=== PATIENT | female | born 1935 | race Caucasian/White ===

== ENCOUNTER → 2019-07-10 12:47 | Outpatient (CLI) | payer OTHER, SELFPAY ==
[2019-07-10 13:57] LABS: BUN Creatinine Ratio 27.3 (6-22); Blood Urea Nitrogen 27 mg/dL (7-17); Calcium 9.9 mg/dL (8.4-10.2); Carbon Dioxide 29 mmol/L (22-32); Chloride 102 mmol/L (98-107); Estimated Glomerular Filt Rate 53.7 mL/min (>60); Glucose 78 mg/dL (80-110); HEMOLYSIS < 15 (0-50); Potassium 5.2 mmol/L (3.4-5.1); Sodium 138 mmol/L (137-145)
== END ==
PROVIDERS: Referring Provider Physician Assistant Medical; Visit Provider Physician Assistant Medical
DX: I10 Essential (primary) hypertension (principal); I11.9 Hypertensive heart disease without heart failure; I27.20 Pulmonary hypertension, unspecified; G47.33 Obstructive sleep apnea (adult) (pediatric); Z99.89 Dependence on other enabling machines and devices; E78.2 Mixed hyperlipidemia
CPT/HCPCS: 36415; 80048

== ENCOUNTER → 2020-03-23 09:10 | Outpatient (CLI) | payer OTHER, SELFPAY ==
[2020-03-23 11:06] LABS: BUN Creatinine Ratio 34.9 (6-22); Blood Urea Nitrogen 30 mg/dL (7-17); Calcium 9.1 mg/dL (8.4-10.2); Carbon Dioxide 28 mmol/L (22-32); Chloride 105 mmol/L (98-107); Estimated Glomerular Filt Rate > 60.0 mL/min (>60); Glucose 98 mg/dL (80-110); HEMOLYSIS < 15 (0-50); Sodium 138 mmol/L (137-145)
== END ==
PROVIDERS: PCP Internal Medicine Cardiovascular Disease; Referring Provider Internal Medicine Cardiovascular Disease; Visit Provider Internal Medicine Cardiovascular Disease
DX: R60.0 Localized edema (principal); I27.20 Pulmonary hypertension, unspecified; I11.9 Hypertensive heart disease without heart failure; R42 Dizziness and giddiness; R93.1 Abnormal findings on diagnostic imaging of heart and coronary circulation; I10 Essential (primary) hypertension; R73.01 Impaired fasting glucose; E78.2 Mixed hyperlipidemia; G47.33 Obstructive sleep apnea (adult) (pediatric); Z99.89 Dependence on other enabling machines and devices
CPT/HCPCS: 36415; 80048

== ENCOUNTER → 2020-06-09 06:48 | Outpatient (CLI) | payer MEDICARE, SELFPAY ==
--- NOTE | 2020-06-09 | DI.MRI.S_ITS ---
PROCEDURE: MR HEAD/BRAIN WO CON INDICATIONS: Dizziness and giddiness TECHNIQUE: Non-contrast axial T1 spin echo, axial T2 fast spin echo, sagittal and axial FLAIR, coronal T2 fast spin echo, axial gradient echo, axial diffusion and ADC through the brain. COMPARISON: None. FINDINGS: Image quality: Excellent. CSF spaces: Ventricles appear symmetric in size and shape. Basal cisterns are patent. No extra-axial fluid collections. Brain: No intracranial bleeds or mass effects. There is cerebral volume loss for age. There are minimal periventricular and deep white matter chronic small vessel ischemic changes. Brainstem appears normal. Diffusion-weighted images show no acute ischemic insults. No chronic ischemic insults. Normal intravascular flow voids are present. 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 Skull and face: Calvarial bone marrow is normal in signal. Orbits are normal. Sinuses: Sinuses and mastoids are clear. IMPRESSION: 1. No acute intracranial process. 2. Moderate atrophy minimal chronic microvascular ischemic change. Dictated by: Azeb Stark M.D. on 06/09/2020 at 9:38 Approved by: Azeb Stark M.D. on 06/09/2020 at 9:39
== END ==
PROVIDERS: PCP Internal Medicine; Referring Provider Internal Medicine; Visit Provider Internal Medicine
DX: R42 Dizziness and giddiness (principal)
CPT/HCPCS: 70551

== ENCOUNTER → 2020-06-13 13:53 | Outpatient (CLI) | payer MEDICARE, SELFPAY ==
--- NOTE | 2020-06-13 | DI.MG.S_ITS ---
BILATERAL DIGITAL DIAGNOSTIC MAMMOGRAM 3D/2D: 06/13/2020 CLINICAL: Left breast pain. Comparison is made to exams dated: 01/20/2018 mammogram and 02/18/2019 mammogram - outside location. There are scattered fibroglandular elements in both breasts. The patient is status post surgical excision left breast at 1 o'clock. The left breast has post-operative findings. No significant masses, calcifications, or other findings are seen in either breast. Specifically, no finding to explain the patient's pain. IMPRESSION: NEGATIVE No new findings to explain patient's breast pain. No significant change to post surgical appearance of the upper outer left breast. A 1 year screening mammogram is recommended. Findings and recommendations were conveyed to the patient at time of exam. This exam was interpreted at Station ID: [id number]. NOTE: For mammograms, a report in lay terms will be sent to the patient. Approximately 15% of breast malignancies will not be visualized mammographically. In the management of a palpable breast mass, a negative mammogram must not discourage biopsy of a clinically suspicious lesion. Electronically Signed By: Darcy johnson/:06/13/2020 15:28:02 letter sent: Normal Exam ACR BI-RADS Category 1: Negative [id number]
== END ==
PROVIDERS: PCP Internal Medicine; Referring Provider Internal Medicine; Visit Provider Internal Medicine
DX: N63.20 Unspecified lump in the left breast, unspecified quadrant; N64.4 Mastodynia
CPT/HCPCS: 77066; G0279

== ENCOUNTER → 2020-06-17 08:45 | Outpatient (CLI) | payer MEDICARE, SELFPAY ==
[2020-06-17 10:13] LABS: Alanine Aminotransferase 25 IU/L (<35); Albumin 4.5 g/dL (3.5-5.0); Albumin Globulin Ratio 1.4 (1.0-2.8); Alkaline Phosphatase 74 U/L (38-126); Aspartate Aminotransferase 39 IU/L (14-36); Bilirubin Total 0.4 mg/dL (0.2-1.3); Blood Urea Nitrogen 26 mg/dL (7-17); Calcium 9.1 mg/dL (8.4-10.2); Carbon Dioxide 27 mmol/L (22-32); Chloride 99 mmol/L (98-107); Cholesterol 185 mg/dL (140-199); Estimated Glomerular Filt Rate 57.7 mL/min (>60); Globulin 3.3 g/dL (1.7-4.1); Glucose 99 mg/dL (80-110); HDL Cholesterol 86 mg/dL (40-60); HEMOLYSIS 19 (0-50); LDL Cholesterol Calculated 85 mg/dL (<100); Potassium 4.4 mmol/L (3.4-5.1); Sodium 135 mmol/L (137-145); Total Protein 7.8 g/dL (6.3-8.2); Triglycerides 70 mg/dL (35-150)
[2020-06-17 10:41] LABS: TSH w/ Reflex to FT4 1.35 uIU/mL (0.47-4.68)
== END ==
PROVIDERS: PCP Internal Medicine; Referring Provider Internal Medicine; Visit Provider Internal Medicine
DX: I10 Essential (primary) hypertension (principal); E78.5 Hyperlipidemia, unspecified
CPT/HCPCS: 36415; 80053; 80061; 84443

== ENCOUNTER → 2021-07-03 08:28 | Outpatient (CLI) | payer MEDICARE, SELFPAY ==
[2021-07-03 09:32] LABS: Add Manual Diff / Slide Review NO; Basophils Absolute Auto 0 /uL (0-100); Basophils Percent Auto 0.8 % (0-2); Eosinophils Absolute Auto 100 /uL (0-450); Eosinophils Percent Auto 3.1 % (2-4); Hemoglobin 12.2 g/dL (12.0-16.0); Lymphocytes Absolute Auto 800 /uL (1100-4500); Lymphocytes Percent Auto 20.9 % (25-40); Mean Corpuscular HGB Conc 33.9 % (30-36); Mean Corpuscular Hemoglobin 29.1 PG (26-34); Mean Corpuscular Volume 85.8 fL (80-100); Monocytes Absolute Auto 500 /uL (0-900); Monocytes Percent Auto 12.5 % (3-14); Neutrophils Absolute Auto 2500 /uL (1500-7000); Neutrophils Percent Auto 62.7 % (50-75); Platelet Count 169 X10^3/uL (150-400); Red Cell Distribution Width 15.8 % (11.6-14.8)
[2021-07-03 10:07] LABS: BUN Creatinine Ratio 25.9 (6-22); Blood Urea Nitrogen 29 mg/dL (7-17); Calcium 9.4 mg/dL (8.4-10.2); Carbon Dioxide 29 mmol/L (22-32); Chloride 104 mmol/L (98-107); Estimated Glomerular Filt Rate 46.3 mL/min (>60); Glucose 107 mg/dL (80-110); HEMOLYSIS < 15 (0-50); Potassium 4.9 mmol/L (3.4-5.1); Sodium 139 mmol/L (137-145)
[2021-07-03 10:16] LABS: NT-proBNP (BNP-Adult 18+) 206 pg/mL (<450)
[2021-07-03 10:36] LABS: Appearance Urine UA CLEAR; Bilirubin Urine UA NEGATIVE (NEGATIVE); Color Urine UA YELLOW; Glucose Urine UA NEGATIVE (Negative); Ketones Urine UA NEGATIVE (NEGATIVE); Leukocyte Esterase Urine UA NEGATIVE (NEGATIVE); Nitrite Urine UA NEGATIVE (Negative); Occult Blood Urine UA NEGATIVE (Negative); Protein Urine UA NEGATIVE (Negative); Urobilinogen Urine UA 0.2 E.U./dL (0.2)
[2021-07-03 10:37] LABS: Thyroid Stimulating Hormone 1.63 uIU/mL (0.47-4.68)
[2021-07-03 10:38] LABS: pH Urine UA 5.5 (4.5-8.0)
[2021-07-03 11:00] LABS: Bacteria Urine None Seen; RBC Urine None Seen (0-5/HPF); WBC Urine None Seen (0-5/HPF)
[2021-07-03 11:01] LABS: Culture Indicated Urine Cult Not Indicated
== END ==
PROVIDERS: PCP Internal Medicine; Referring Provider Nurse Practitioner Family; Visit Provider Nurse Practitioner Family
DX: G47.33 Obstructive sleep apnea (adult) (pediatric) (principal); E78.2 Mixed hyperlipidemia; R93.1 Abnormal findings on diagnostic imaging of heart and coronary circulation; I10 Essential (primary) hypertension; N17.9 Acute kidney failure, unspecified
CPT/HCPCS: 36415; 80048; 81001; 83880; 84443; 85025

== ENCOUNTER → 2021-07-19 09:58 | Outpatient (CLI) | payer MEDICARE, SELFPAY ==
--- NOTE | 2021-07-19 | DI.MG.S_ITS ---
BILATERAL DIGITAL SCREENING MAMMOGRAM 3D/2D WITH CAD: 07/19/2021 CLINICAL: Routine screening. Personal history of left breast cancer. Comparison is made to exams dated: 06/13/2020 mammogram - [facility], 02/18/2019 mammogram, and 01/20/2018 mammogram - outside location. There are scattered fibroglandular elements in both breasts. Current study was also evaluated with a Computer Aided Detection (CAD) system. No significant masses, calcifications, or other findings are seen in either breast. There has been no significant interval change. IMPRESSION: NEGATIVE There is no mammographic evidence of malignancy. A 1 year screening mammogram is recommended. This exam was interpreted at Station ID: [id number]. NOTE: For mammograms, a report in lay terms will be sent to the patient. Approximately 15% of breast malignancies will not be visualized mammographically. In the management of a palpable breast mass, a negative mammogram must not discourage biopsy of a clinically suspicious lesion. Electronically Signed By: Ronnie Velasquez M.D., jr/andrei:07/19/2021 13:58:57 letter sent: Normal Exam ACR BI-RADS Category 1: Negative 3341F
== END ==
PROVIDERS: PCP Internal Medicine; Referring Provider Internal Medicine; Visit Provider Internal Medicine
DX: Z12.31 Encounter for screening mammogram for malignant neoplasm of breast (principal); Z85.3 Personal history of malignant neoplasm of breast
CPT/HCPCS: 77063; 77067

== ENCOUNTER 2021-09-04 15:17 | Emergency (ER) | payer MEDICARE, SELFPAY ==
[2021-09-04 15:39] VITALS: BP 129/67; PULSE 66; RESP 17; TEMP 36.9; O2SAT 98; BMI 33.5
--- NOTE | 2021-09-04 19:15 | ED.NAVMDI ---
HPI - Nausea/Vomiting/Diarrhea General Chief complaint: Nausea/Vomiting/Diarrhea Stated complaint: DIAHRREA Time Seen by Provider: 09/04/21 19:15 Source: patient Mode of arrival: Wheelchair History of Present Illness HPI Narrative: 86-year-old female Nonsmoker with history of hypertension and CHF and prior C. jejuni infection presents with a friend multiple days of diarrhea and chills. She had been in her normal state of health and then Saturday started developing loose stools, cramping and chills, she has had no fever. She denies any recent antibiotics, travel or bad food though she did have some home he had fried chicken the night before symptoms started. She is had decreased appetite and is eating and drinking little as she becomes nauseated with consumption. She denies any chest pain or shortness of breath. She denies any dysuria, frequency or urgency. She had been seen and evaluated at the walk-in clinic on Saturday and though she was hoping to provide a stool sample she was told the lab was closed. She was given a prescription for 3 days for a Zithromax in given her history. She states that she has been having upwards of 6 loose stools per day, she denies any blood in her stool. She has not had a bowel movements that she has been here today. Related Data Home Medications Medication Instructions Recorded Confirmed amlodipine 5 mg tablet 5 mg PO DAILY 09/04/21 09/04/21 carvedilol 12.5 mg tablet 12.5 mg PO DAILY 09/04/21 09/04/21 carvedilol 6.25 mg tablet 6.25 mg PO DAILY 09/04/21 09/04/21 furosemide 20 mg tablet 20 mg PO DAILY 09/04/21 09/04/21 furosemide 40 mg tablet 40 mg PO DAILY 09/04/21 09/04/21 losartan 100 mg tablet 100 mg PO DAILY 09/04/21 09/04/21 pravastatin 20 mg tablet 20 mg PO DAILY 09/04/21 09/04/21 Allergies Allergy/AdvReac Type Severity Reaction Status Date / Time No Known Drug Allergies Allergy Verified 09/04/21 15:44 Review of Systems Review of Systems Narrative: GENERAL: See HPI HEENT: Denies sinus pain, ear pain, sore throat, difficulty swallowing, dizziness. RESPIRATORY: Denies dyspnea, cough, wheezing, hemoptysis, sputum. CARDIOVASCULAR: Denies chest pain, palpitations, orthopnea, edema, GASTROINTESTINAL: See HPI : Denies dysuria, frequency, incontinence, hematuria, urinary retention. MUSCULOSKELETAL: denies weakness, joint pain, or bony pain SKIN: Denies rash, skin lesions, or other NEUROLOGIC: Denies weakness, headache, numbness, change in speech, confusion, seizures, incoordination. PSYCHIATRIC: No concerning psychosocial issues. 12 point review of systems is negative except for those stated above Patient History Social History Smoking Status: Never smoker Smoking Status: Never smoker alcohol intake frequency: other Substance Use Type: does not use Exam Narrative Exam Narrative: GENERAL: [86 year old patient appears stated age. Well-developed patient, in mild distress. HEAD: Atraumatic. Normocephalic. EYES: Pupils equal round and reactive. Extraocular motions intact. No scleral icterus. No injection or drainage. ENT: Dry mucous membranes Nose without bleeding, purulent drainage. Throat without erythema, tonsillar hypertrophy or exudate. Airway patent. NECK: Trachea midline. Non tender CARDIOVASCULAR: Regular rate and rhythm without murmurs, gallops, or rubs. RESPIRATORY: Clear to auscultation. Breath sounds equal bilaterally. No wheezes, rales, or rhonchi. GASTROINTESTINAL: Abdomen soft, minimal generalized tenderness with increased bowel sounds nondistended. EXTREMITIES: No edema or joint tenderness. BACK: Nontender without deformity or crepitance. No flank tenderness. NEURO: AOx3. SKIN: No rash or erythema of visible areas Initial Vital Signs Initial Vital Signs: Vital Signs Temperature 98.4 F 09/04/21 15:39 Pulse Rate 66 09/04/21 15:39 Respiratory Rate 17 09/04/21 15:39 Blood Pressure 129/67 09/04/21 15:39 Pulse Oximetry 98 09/04/21 15:39 Course Orders Ordered: ED Orders 09/04/21 15:47 Comprehensive Metabolic Panel Stat Lipase Stat 09/04/21 19:03 Complete Blood Count AUTO DIFF Stat 09/04/21 21:02 COVID19 -Nasal RAPID/Pre-Proc Stat Discontinued Medications Sodium Chloride (Normal Saline 0.9%) 500 mls @ 1,000 mls/hr IV BOLUS ONE Stop: 09/04/21 19:57 Last Infusion: 09/04/21 20:18 Dose: 0 mls/hr Documented by: Admin: 09/04/21 19:44 Dose: 1,000 mls/hr Documented by: TEGAN Ondansetron HCl (Ondansetron 4 Mg/2 Ml Inj) 4 mg IV NOW ONE Stop: 09/04/21 19:33 Last Admin: 09/04/21 19:43 Dose: 4 mg Documented by: TEGAN Pantoprazole Sodium (Pantoprazole 40 Mg Vial) 40 mg IV NOW ONE Stop: 09/04/21 19:33 Last Admin: 09/04/21 19:44 Dose: 40 mg Documented by: TEGAN Vital Signs Vital signs: Vital Signs - 8 hr 09/04/21 22:43 Pulse Rate 66 Respiratory Rate 18 Blood Pressure 128/70 Pulse Oximetry 98 MDM - Nausea/Vomiting/Diarrhea Lab Data Result diagrams: 09/04/21 19:03 09/04/21 15:47 Labs: Lab Results 09/04/21 09/04/21 09/04/21 Range/Units 15:47 19:03 21:02 WBC 4.9 (4.5-11.0) X10^3/uL RBC 4.43 (4.0-5.2) X10^6/uL Hgb 12.7 (12.0-16.0) g/dL Hct 38.5 (36-46) % MCV 86.8 (80-100) fL MCH 28.6 (26-34) PG MCHC 33.0 (30-36) % RDW 15.1 H (11.6-14.8) % Plt Count 162 (150-400) X10^3/uL Neut % (Auto) 58.7 (50-75) % Lymph % (Auto) 19.6 L (25-40) % [place] % (Auto) 17.9 H (3-14) % Eos % (Auto) 3.5 (2-4) % Baso % (Auto) 0.3 (0-2) % Neut # (Auto) 2900 (6101-1469) /uL Lymph # (Auto) 1000 L (7353-9403) /uL [place] # (Auto) 900 (0-900) /uL Eos # (Auto) 200 (0-450) /uL Baso # (Auto) 0 (0-100) /uL Sodium 136 L (137-145) mmol/L Potassium 4.5 (3.4-5.1) mmol/L Chloride 104 (98-107) mmol/L Carbon Dioxide 22 (22-32) mmol/L BUN 32 H (7-17) mg/dL Creatinine 1.11 H (0.52-1.04) mg/dL Estimated GFR 49 L (>60) mL/min BUN/Creatinine Ratio 28.8 H (6-22) Glucose 103 (80-110) mg/dL Calcium 9.1 (8.4-10.2) mg/dL Total Bilirubin 0.4 (0.2-1.3) mg/dL AST 34 (14-36) IU/L ALT 12 (<35) IU/L Alkaline Phosphatase 67 (38-126) U/L Total Protein 8.5 H (6.3-8.2) g/dL Albumin 4.6 (3.5-5.0) g/dL Globulin 3.9 (1.7-4.1) g/dL Albumin/Globulin Ratio 1.2 (1.0-2.8) Lipase 65 (23-300) U/L SARS-CoV-2 (PCR) Negative (Negative) Urine Dip Bedside Urine Glucose Negative Bedside Urine Bilirubin - Negative Bedside Urine Ketone - Negative Urine Specific [place] 1.015 Bedside Urine Occult Blood - Negative Bedside Urine pH 5.5 Bedside Urine Protein - Negative Bedside Urine Urobilinogen - Negative Bedside Urine Nitrite - Negative Bedside Urine Leukocytes - Negative Esterase MDM Narrative Medical decision making narrative: Patient with reassuring history and physical exam. She feels significant improvement after fluids and has been here multiple hours and still unable to produce at loose stool. She has very minimal if any pain and is tolerating orals without difficulty. She has no significant risk factors for infectious diarrhea and is already being treated with a Zithromax. She has been given extensive return precautions, I called lab and put in an order for a GI panel, patient was supplied with a sterile cup and instructions for how to obtain and return the sample. Discharge Plan Departure Patient Disposition: Home Clinical Impression: Diarrhea Qualifiers: Diarrhea type: unspecified type Qualified Code(s): R19.7 - Diarrhea, unspecified Instructions: Diarrhea Activity Restrictions/Additional Instructions: *You have been diagnosed with [ diarrhea] *What to do: *Please continue to take your regular medications as directed. [ ] New medication prescriptions sent to your pharmacy: [ ] [ ] New medication written as a paper prescription [x ] No new medications given *Please follow up with your primary care provider in 2-3 days, call for an appointment. Let them know you were seen in the Emergency Department and that we ask that you be seen in follow up. We will electronically transmit a record of today's note if your PCP is in our system *Please consider a clear liquid diet for the next 24-48 hours *Return to Emergency Department if you should have any new, worsening or concerning symptoms, such as [fever greater than 101 F, shaking chills, worsening pain, persistent vomiting or other bothersome symptoms] Prescriptions: No Action furosemide 40 mg tablet 40 mg PO DAILY 0RF carvedilol 6.25 mg tablet 6.25 mg PO DAILY 0RF carvedilol 12.5 mg tablet 12.5 mg PO DAILY 0RF amlodipine 5 mg tablet 5 mg PO DAILY 0RF pravastatin 20 mg tablet 20 mg PO DAILY 0RF furosemide 20 mg tablet 20 mg PO DAILY 0RF losartan 100 mg tablet 100 mg PO DAILY 0RF Referrals: Merari Marks MD [Primary Care Provider] - Visit Report Forms: Patient Portal/API
[2021-09-04 19:33] LABS: Add Manual Diff / Slide Review NO; Basophils Absolute Auto 0 /uL (0-100); Basophils Percent Auto 0.3 % (0-2); Eosinophils Absolute Auto 200 /uL (0-450); Eosinophils Percent Auto 3.5 % (2-4); Hematocrit 38.5 % (36-46); Hemoglobin 12.7 g/dL (12.0-16.0); Lymphocytes Absolute Auto 1000 /uL (1100-4500); Lymphocytes Percent Auto 19.6 % (25-40); Mean Corpuscular Hemoglobin 28.6 PG (26-34); Mean Corpuscular Volume 86.8 fL (80-100); Monocytes Absolute Auto 900 /uL (0-900); Monocytes Percent Auto 17.9 % (3-14); Neutrophils Absolute Auto 2900 /uL (1500-7000); Neutrophils Percent Auto 58.7 % (50-75); Platelet Count 162 X10^3/uL (150-400); Red Blood Cell Count 4.43 X10^6/uL (4.0-5.2); Red Cell Distribution Width 15.1 % (11.6-14.8); White Blood Cell Count 4.9 X10^3/uL (4.5-11.0)
[2021-09-04] MEDS: ONDANSETRON 4 MG/2 ML INJ IV (19:43)
[2021-09-04] MEDS: SODIUM CHLORIDE 0.9% 500 ML 1000 ML IV (19:44)
[2021-09-04] MEDS: PANTOPRAZOLE 40 MG VIAL IV (19:44)
[2021-09-04 19:58] LABS: Alanine Aminotransferase 12 IU/L (<35); Albumin 4.6 g/dL (3.5-5.0); Albumin Globulin Ratio 1.2 (1.0-2.8); Alkaline Phosphatase 67 U/L (38-126); Aspartate Aminotransferase 34 IU/L (14-36); BUN Creatinine Ratio 28.8 (6-22); Bilirubin Total 0.4 mg/dL (0.2-1.3); Blood Urea Nitrogen 32 mg/dL (7-17); Calcium 9.1 mg/dL (8.4-10.2); Carbon Dioxide 22 mmol/L (22-32); Chloride 104 mmol/L (98-107); Estimated Glomerular Filt Rate 49 mL/min (>60); Globulin 3.9 g/dL (1.7-4.1); Glucose 103 mg/dL (80-110); HEMOLYSIS 41 (0-50); Lipase 65 U/L (23-300); Potassium 4.5 mmol/L (3.4-5.1); Sodium 136 mmol/L (137-145); Total Protein 8.5 g/dL (6.3-8.2)
[2021-09-04 21:44] LABS: COVID19 -Nasal RAPID Negative (Negative)
[2021-09-04 22:43] VITALS: BP 128/70; PULSE 66; RESP 18; O2SAT 98
[2021-09-05 14:31] LABS: Adenovirus F 40/41 Not Detected (Not Detect); Astrovirus Not Detected (Not Detect); Clostridium difficile toxin AB Not Detected (Not Detect); Cryptosporidium Not Detected (Not Detect); Cyclospora cayetanensis Not Detected (Not Detect); Entamoeba histolytica Not Detected (Not Detect); Enteroaggregative E.coli Not Detected (Not Detect); Enteropathogenic E.coli Not Detected (Not Detect); Enterotoxigenic E.coli It/st Not Detected (Not Detect); Giardia lamblia Not Detected (Not Detect); Norovirus GI/GII Not Detected (Not Detect); Plesiomonsa shigelloides Not Detected (Not Detect); Rotavirus A Not Detected (Not Detect); Salmonella Not Detected (Not Detect); Sapovirus Not Detected (Not Detect); Shiga-like toxin-prod E.coli Not Detected (Not Detect); Shigella/Enteroinvasive E.coli Not Detected (Not Detect); Vibrio Not Detected (Not Detect); Vibrio cholerae Not Detected (Not Detect); Yersinia enterocolitica Not Detected (Not Detect)
[2021-09-05 14:38] LABS: Campylobacter Detected (Not Detect)
== END 2021-09-04 22:44 | disposition home or self-care (01) ==
PROVIDERS: Emergency Medicine; Emergency Provider Emergency Medicine; PCP Internal Medicine
DX: R19.7 Diarrhea, unspecified (principal); Z20.822 Contact with and (suspected) exposure to COVID-19
CPT/HCPCS: 36415; 80053; 81003; 83690; 85025; 87507; 87635; 96361; 96374; 96375; 99284; C9803; C9113; J2405

== ENCOUNTER → 2021-11-24 11:47 | Outpatient (CLI) | payer MEDICARE, SELFPAY | PROVIDERS: PCP Internal Medicine; Referring Provider Internal Medicine; Visit Provider Internal Medicine | DX: Z78.0 Asymptomatic menopausal state (principal); Z13.820 Encounter for screening for osteoporosis; Z90.710 Acquired absence of both cervix and uterus | CPT/HCPCS: 77080 ==

== ENCOUNTER → 2021-12-18 13:41 | Outpatient (CLI) | payer MEDICARE, SELFPAY ==
--- NOTE | 2021-12-18 13:42 | DI.ECHO.S_ITS ---
[facility]---------+ [facility] +---------+ : : [address] : [place] : : : : [id number] : : : : Phone: [phone] Echocardiogram Report + + :Name: KERVIN JOHNSON Study Date: 12/18/2021 Height: 64 in : :[facility] ReadingLocation: Weight: 220 lb : : Gender: Female BSA: 2.0 m2 : :: 1935 Age: 86 yrs BP: 150/77 mmHg: :Reason For Study: CHRONIC SYSTOLIC HEART FAILURE : :Ordering Physician: FABRIZIO, : :BUSHRA Performed By: Virginia Mckeon : :Referring: BUSHRA DINH : + + Interpretation Summary The ejection fraction is estimated to be 60-65%. There is mild mitral regurgitation. There is trace aortic regurgitation. There is mild to moderate tricuspid regurgitation. The right ventricular systolic pressure is estimated to be at least 49 mmHg based on an estimated right atrial pressure of 3 mm Hg. Procedure: A two-dimensional transthoracic echocardiogram with color flow and Doppler was performed. The study quality was technically adequate. There is no prior echocardiogram noted for this patient. The patient was in sinus rhythm with heart rates between 54-60 bpm during the exam. Left Ventricle: The left ventricle is normal in size and wall thickness. The ejection fraction is estimated to be 60-65%. Right Ventricle: The right ventricle is normal in size and function. Atria: The left atrium is mildly dilated. Right atrial size is normal. There is no Doppler evidence for an interatrial shunt. Mitral Valve: The mitral valve is normal in structure and function. There is mild mitral regurgitation. Aortic Valve: The aortic valve is trileaflet. The aortic valve opens well. There is no aortic valve stenosis. There is trace aortic regurgitation. Tricuspid Valve: The tricuspid valve leaflets are thin and pliable. There is mild to moderate tricuspid regurgitation. The right ventricular systolic pressure is estimated to be at least 49 mmHg based on an estimated right atrial pressure of 3 mm Hg. Pulmonic Valve: The pulmonic valve is not well seen, but is grossly normal. There is no pulmonic valvular regurgitation. Great Vessels: The aortic root is normal size. The dimensions of the ascending aorta are normal. The IVC is of normal diameter and collapses greater than 50% with a sniff. This suggests a low right atrial pressure of 3 mm Hg. Pericardium/ Pleura There is no pericardial effusion. There is no pleural effusion. MMode/2D Measurements & Calculations LVIDd: 5.1 cm LVOT diam: 2.0 cm LVIDs: 3.3 cm Ao root diam: 3.6 cm FS: 35.0 % asc Aorta Diam: 3.3 cm EPSS: 0.73 cm Ao Arch Diam (Prox Trans): 2.4 cm IVSd: 0.97 cm LVPWd: 1.0 cm LV barroso. diameter/BSA (cm/m^2): 2.5 LV sys. diameter/BSA (cm/m^2): 1.6 LA A2 area: 23.1 cm2 RA long axis: 5.7 cm LA A4 area: 21.8 cm2 RA area: 17.2 cm2 LA length (vol): 5.3 cm RA vol: 44.2 ml LA vol: 80.3 ml RA : 21.7 ml/m2 LA vol index: 39.4 ml/m2 IVC diam: 1.8 cm RVD1 (basal): 4.0 cm RVD2 (mid): 3.2 cm TAPSE: 2.5 cm Doppler Measurements & Calculations Ao V2 max: 174.8 cm/sec LVOT Max Simone: 112.4 cm/sec Ao V2 mean: 116.6 cm/sec LV V1 max P.1 mmHg Ao max P.2 mmHg LV V1 VTI: 28.7 cm Ao mean P.2 mmHg VADIM(I,D): 2.1 cm2 Ao V2 VTI: 42.6 cm VADIM(V,D): 2.0 cm2 sev ratio: 0.67 VADIM indexed to BSA (cm^2/m^2): 1.0 MV E max simone: 102.8 cm/sec TR max simone: 340.6 cm/sec MV A max simone: 81.7 cm/sec TR max P.4 mmHg MV E/A: 1.3 PA V2 max: 112.6 cm/sec Med Peak E' Simone: 6.2 cm/sec PA V2 mean: 72.1 cm/sec E/E' med: 16.6 PA mean P.4 mmHg Lat Peak E' Simone: 10.4 cm/sec PA pr(Accel): 17.3 mmHg E/E' lat: 9.9 E/e' average: 13.3 MV dec time: 0.20 sec SV(LVOT): 89.2 ml Reading Physician:04:56 PM
== END ==
PROVIDERS: PCP Internal Medicine; Referring Provider Internal Medicine; Visit Provider Internal Medicine
DX: I50.22 Chronic systolic (congestive) heart failure (principal); I34.0 Nonrheumatic mitral (valve) insufficiency; I35.1 Nonrheumatic aortic (valve) insufficiency; I07.1 Rheumatic tricuspid insufficiency
CPT/HCPCS: 93306

== ENCOUNTER 2022-11-08 14:54 | Emergency (ER) | payer MEDICARE, SELFPAY ==
[2022-11-08] VITALS (24 sets, daily range): BP systolic 131–208; BP diastolic 60–90; PULSE 54–63; RESP 20–37; TEMP 36.3; O2SAT 92–99; BMI 39.8
--- NOTE | 2022-11-08 15:04 | DI.RAD.S_ITS ---
PROCEDURE: XR CHEST 1V INDICATIONS: chest pain TECHNIQUE: One view of the chest was acquired. COMPARISON: None. FINDINGS: Surgical changes and devices: None. Lungs and pleura: There is a small focal area of density in the right lower lung field. No pleural effusions or pneumothorax. Mediastinum: Mediastinal contours appear normal. Heart size is normal. Bones and chest wall: No suspicious bony lesions. Overlying soft tissues appear unremarkable. IMPRESSION: Small focal area of density in the right lower lung field consistent with atelectasis or a focal infiltrate Dictated by: Wilian Avila M.D. on 11/08/2022 at 15:49 Approved by: Wilian Avila M.D. on 11/08/2022 at 15:52
[2022-11-08 16:22] LABS: Add Manual Diff / Slide Review NO; Basophils Absolute Auto 0 /uL (0-100); Basophils Percent Auto 0.6 % (0-2); Eosinophils Absolute Auto 100 /uL (0-450); Eosinophils Percent Auto 2.6 % (2-4); Hematocrit 37.6 % (36-46); Hemoglobin 12.5 g/dL (12.0-16.0); Lymphocytes Absolute Auto 600 /uL (1100-4500); Lymphocytes Percent Auto 12.8 % (25-40); Mean Corpuscular HGB Conc 33.3 % (30-36); Monocytes Absolute Auto 600 /uL (0-900); Monocytes Percent Auto 13.2 % (3-14); Neutrophils Absolute Auto 3100 /uL (1500-7000); Neutrophils Percent Auto 70.8 % (50-75); Platelet Count 149 X10^3/uL (150-400); Red Blood Cell Count 4.32 X10^6/uL (4.0-5.2); Red Cell Distribution Width 15.4 % (11.6-14.8); White Blood Cell Count 4.4 X10^3/uL (4.5-11.0)
[2022-11-08 16:23] LABS: PTT Partial Thromboplastin Tim 26 SECONDS (26-36)
[2022-11-08 16:25] LABS: Alanine Aminotransferase 18 IU/L (<35); Albumin 4.5 g/dL (3.5-5.0); Albumin Globulin Ratio 1.3 (1.0-2.8); Alkaline Phosphatase 79 U/L (38-126); Aspartate Aminotransferase 29 IU/L (14-36); BUN Creatinine Ratio 31.9 (6-22); Bilirubin Total 0.3 mg/dL (0.2-1.3); Blood Urea Nitrogen 37 mg/dL (7-17); Calcium 9.7 mg/dL (8.4-10.2); Carbon Dioxide 30 mmol/L (22-32); Chloride 100 mmol/L (98-107); Creatine Kinase 86 U/L (30-135); Estimated Glomerular Filt Rate 46 mL/min (>60); Globulin 3.6 g/dL (1.7-4.1); Glucose 124 mg/dL (80-110); HEMOLYSIS < 15 (0-50); Lipase 181 U/L (23-300); Potassium 4.2 mmol/L (3.4-5.1); Sodium 138 mmol/L (137-145); Total Protein 8.1 g/dL (6.3-8.2)
[2022-11-08 16:36] LABS: Troponin I < 0.012 ng/mL (0.01-0.034)
[2022-11-08 19:13] LABS: Troponin I < 0.012 ng/mL (0.01-0.034)
--- NOTE | 2022-11-08 19:30 | ED_ITS ---
HPI - Arrhythmia/Palpitations General Chief Complaint: Arrhythmia/Palpitations Stated Complaint: Chest pain Time Seen by Provider: 11/08/22 19:14 Source: patient Mode of arrival: Ambulatory History of Present Illness HPI narrative: Patient is a 87-year-old female history of hypertension, congestive heart failure presenting today with palpitations. She says she woke up around 4:00 a.m. and felt her heart pounding. It is off and on throughout the days. She denies any actual chest pain or shortness of breath. She has no cough no nausea no abdominal pain. Since being in the ED she is overall feeling significantly better. She called her asbestos shingle roofer in [place] who told her that she needs an EKG her PCP who is here was unable to see her. Her vitals have been stable in the ED and she is currently in a normal sinus rhythm. Related Data Home Medications Medication Instructions Recorded Confirmed amlodipine 5 mg tablet 5 mg PO DAILY 09/04/21 09/04/21 carvedilol 12.5 mg tablet 12.5 mg PO DAILY 09/04/21 09/04/21 carvedilol 6.25 mg tablet 6.25 mg PO DAILY 09/04/21 09/04/21 furosemide 20 mg tablet 20 mg PO DAILY 09/04/21 09/04/21 furosemide 40 mg tablet 40 mg PO DAILY 09/04/21 09/04/21 losartan 100 mg tablet 100 mg PO DAILY 09/04/21 09/04/21 pravastatin 20 mg tablet 20 mg PO DAILY 09/04/21 09/04/21 Allergies Allergy/AdvReac Type Severity Reaction Status Date / Time No Known Drug Allergies Allergy Verified 11/08/22 15:03 Review of Systems Review of Systems ROS Unobtainable: All systems reviewed & are unremarkable except as noted in HPI and below Patient History Social History Smoking Status: Never smoker Smoking Status: Never smoker alcohol intake frequency: 3 or more drinks per day Alcohol type: wine Substance Use Type: does not use Exam Initial Vital Signs Initial Vital Signs: Vital Signs Temperature 97.4 F L 11/08/22 14:58 Pulse Rate 63 11/08/22 14:58 Respiratory Rate 20 11/08/22 14:58 Blood Pressure 208/81 H 11/08/22 14:58 Pulse Oximetry 99 11/08/22 14:58 Oxygen Delivery Method Room Air 11/08/22 14:58 GENERAL: Alert pleasant well-appearing 87-year-old female and in no acute distress. HEENT: Head atraumatic,EOMI, pupils reactive, face symmetric, moist mucous membranes CARDIOVASCULAR: Regular rate and rhythm without murmurs, rubs or gallops. RESPIRATORY: Breath sounds equal bilaterally, no wheezes rales or rhonchi. ABDOMEN: Soft, nontender. Normoactive bowel sounds all 4 quadrants. No guarding or rebound. EXTREMITIES: Normal range of motion, no clubbing or edema. Neurovascularly intact NEUROLOGICAL: Alert and oriented x4.Normal gait and speech. SKIN: Warm, dry, no laceration, no petechiae, no rashes or lesions. Course Orders Ordered: Discontinued Medications Aspirin (Aspirin 81 Mg Chew Tab) 324 mg PO NOW ONE Stop: 11/08/22 15:04 Last Admin: 11/08/22 17:53 Dose: Not Given Documented By: TIMMY Vital Signs Vital signs: Vital Signs - 8 hr 11/08/22 19:50 11/08/22 19:50 11/08/22 20:00 Pulse Rate 57 L 56 L Respiratory Rate 25 H 37 H Blood Pressure 164/71 H Pulse Oximetry 99 99 Oxygen Delivery Method 11/08/22 20:05 Pulse Rate 60 Respiratory Rate 22 Blood Pressure Pulse Oximetry 98 Oxygen Delivery Method Room Air MDM - Arrhythmia/Palpitations Lab Data 11/08/22 16:00 11/08/22 16:00 Labs: Lab Results 11/08/22 11/08/22 11/08/22 Range/Units 16:00 16:00 16:00 WBC 4.4 L (4.5-11.0) X10^3/uL RBC 4.32 (4.0-5.2) X10^6/uL Hgb 12.5 (12.0-16.0) g/dL Hct 37.6 (36-46) % MCV 87.0 (80-100) fL MCH 29.0 (26-34) PG MCHC 33.3 (30-36) % RDW 15.4 H (11.6-14.8) % Plt Count 149 L (150-400) X10^3/uL Neut % (Auto) 70.8 (50-75) % Lymph % (Auto) 12.8 L (25-40) % [place] % (Auto) 13.2 (3-14) % Eos % (Auto) 2.6 (2-4) % Baso % (Auto) 0.6 (0-2) % Neut # (Auto) 3100 (3223-0132) /uL Lymph # (Auto) 600 L (0938-1764) /uL [place] # (Auto) 600 (0-900) /uL Eos # (Auto) 100 (0-450) /uL Baso # (Auto) 0 (0-100) /uL PT 11.0 (10.1-12.7) SECONDS INR 1.0 (0.9-1.3) APTT 26 (26-36) SECONDS Sodium 138 (137-145) mmol/L Potassium 4.2 (3.4-5.1) mmol/L Chloride 100 (98-107) mmol/L Carbon Dioxide 30 (22-32) mmol/L BUN 37 H (7-17) mg/dL Creatinine 1.16 H (0.52-1.04) mg/dL Estimated GFR 46 L (>60) mL/min BUN/Creatinine Ratio 31.9 H (6-22) Glucose 124 H (80-110) mg/dL Calcium 9.7 (8.4-10.2) mg/dL Magnesium 2.0 (1.6-2.3) mg/dL Total Bilirubin 0.3 (0.2-1.3) mg/dL AST 29 (14-36) IU/L ALT 18 (<35) IU/L Alkaline Phosphatase 79 (38-126) U/L Total Creatine Kinase 86 (30-135) U/L Troponin I < 0.012 (0.01-0.034) ng/mL Total Protein 8.1 (6.3-8.2) g/dL Albumin 4.5 (3.5-5.0) g/dL Globulin 3.6 (1.7-4.1) g/dL Albumin/Globulin Ratio 1.3 (1.0-2.8) Lipase 181 (23-300) U/L 11/08/22 Range/Units 18:40 WBC (4.5-11.0) X10^3/uL RBC (4.0-5.2) X10^6/uL Hgb (12.0-16.0) g/dL Hct (36-46) % MCV (80-100) fL MCH (26-34) PG MCHC (30-36) % RDW (11.6-14.8) % Plt Count (150-400) X10^3/uL Neut % (Auto) (50-75) % Lymph % (Auto) (25-40) % [place] % (Auto) (3-14) % Eos % (Auto) (2-4) % Baso % (Auto) (0-2) % Neut # (Auto) (5478-0958) /uL Lymph # (Auto) (1340-5611) /uL [place] # (Auto) (0-900) /uL Eos # (Auto) (0-450) /uL Baso # (Auto) (0-100) /uL PT (10.1-12.7) SECONDS INR (0.9-1.3) APTT (26-36) SECONDS Sodium (137-145) mmol/L Potassium (3.4-5.1) mmol/L Chloride (98-107) mmol/L Carbon Dioxide (22-32) mmol/L BUN (7-17) mg/dL Creatinine (0.52-1.04) mg/dL Estimated GFR (>60) mL/min BUN/Creatinine Ratio (6-22) Glucose (80-110) mg/dL Calcium (8.4-10.2) mg/dL Magnesium (1.6-2.3) mg/dL Total Bilirubin (0.2-1.3) mg/dL AST (14-36) IU/L ALT (<35) IU/L Alkaline Phosphatase (38-126) U/L Total Creatine Kinase (30-135) U/L Troponin I < 0.012 (0.01-0.034) ng/mL Total Protein (6.3-8.2) g/dL Albumin (3.5-5.0) g/dL Globulin (1.7-4.1) g/dL Albumin/Globulin Ratio (1.0-2.8) Lipase (23-300) U/L ECG Data Interpretation: Sinus rhythm rate 59 OK interval 244 QRS 76 QTC 399 Q-wave noted in lead 3 and anterior septal leads without ST changes MDM Narrative Medical decision making narrative: Patient is 87-year-old female history of hypertension congestive heart failure presenting today with palpitations. She is been on the monitor without any evidence of frequent PVCs or PACs. She is in a sinus rhythm without EKG changes not having any chest pain. Blood work is overall reassuring she is 2- troponins. Chest x-ray does not show any abnormality. Who does have a primary care provider here in town who can set her Holter monitor. At this time she overall feels well see no need for any further workup. Discharge Plan Departure Patient Disposition: Home Clinical Impression: Palpitations Instructions: Arrhythmias Activity Restrictions/Additional Instructions: *You have been diagnosed with palpitations *What to do: At this time I do recommend that you could Holter monitor you can talk with Dr. Marks about this. If you are feeling more palpitations please come to the ED to be evaluated *Continue to take medications as directed *Follow up with your primary care provider in 2-3 days or call [phone] *Return to ER if you should have increasing chest pain shortness of breath or palpitations or any new, worsening or concerning symptoms Prescriptions: No Action furosemide 40 mg tablet 40 mg PO DAILY carvedilol 6.25 mg tablet 6.25 mg PO DAILY carvedilol 12.5 mg tablet 12.5 mg PO DAILY amlodipine 5 mg tablet 5 mg PO DAILY pravastatin 20 mg tablet 20 mg PO DAILY furosemide 20 mg tablet 20 mg PO DAILY losartan 100 mg tablet 100 mg PO DAILY Referrals: Merari Marks MD [Primary Care Provider] - Stand Alone Forms: Patient Portal/API
== END 2022-11-08 20:10 | disposition home or self-care (01) ==
PROVIDERS: Emergency Medicine; Emergency Provider Emergency Medicine; PCP Internal Medicine
DX: R00.2 Palpitations (principal)
CPT/HCPCS: 36415; 71045; 80053; 82550; 83690; 83735; 84484; 85025; 85610; 85730; 93005; 93010; 99283; 99284

== ENCOUNTER → 2023-10-11 13:54 | Outpatient (CLI) | payer MEDICARE, SELFPAY ==
--- NOTE | 2023-10-11 13:56 | DI.MG.S_ITS ---
BILATERAL DIGITAL SCREENING MAMMOGRAM 3D/2D WITH CAD: 10/11/2023 CLINICAL: Routine screening. Personal history of left breast cancer. Comparison is made to exams dated: 07/19/2021 mammogram, 06/13/2020 mammogram - [facility], and 02/18/2019 mammogram - outside location. There are scattered areas of fibroglandular density in both breasts (category b / 25%-50% glandular tissue). Current study was also evaluated with a Computer Aided Detection (CAD) system. There are benign post operative findings in the left breast. No significant masses, calcifications, or other findings are seen in either breast. There has been no significant interval change. IMPRESSION: BENIGN There is no mammographic evidence of malignancy. A 1 year screening mammogram is recommended. This exam was interpreted at Station ID: [id number]. NOTE: For mammograms, a report in lay terms will be sent to the patient. Approximately 15% of breast malignancies will not be visualized mammographically. In the management of a palpable breast mass, a negative mammogram must not discourage biopsy of a clinically suspicious lesion. Electronically Signed By: Rc calvo/andrei:10/11/2023 15:21:35 letter sent: Normal Exam ACR BI-RADS Category 2: Benign Finding(s) 3342F
== END ==
LOC: MAMMO 13:55
PROVIDERS: PCP Internal Medicine; Referring Provider Internal Medicine; Visit Provider Internal Medicine
DX: Z12.31 Encounter for screening mammogram for malignant neoplasm of breast (principal); Z85.3 Personal history of malignant neoplasm of breast; R92.323 Mammographic fibroglandular density, bilateral breasts
CPT/HCPCS: 77063; 77067

== ENCOUNTER → 2024-06-15 13:46 | Outpatient (CLI) | payer MEDICARE, SELFPAY ==
--- NOTE | 2024-06-15 13:48 | DI.US.S_ITS ---
PROCEDURE: US THYROID INDICATIONS: PRIMARY HTN/THYROID ANTIBODIES NEG/TSH SUPPRESED TECHNIQUE: Real-time scanning was performed of the thyroid gland, with image documentation. COMPARISON: None. FINDINGS: Thyroid: Right lobe measures 4.6 x 1.3 x 1.9 cm. Left lobe measures 5.6 x 1.9 x 1.5 cm. Isthmus is 0.5 cm thick. Echotexture is homogeneous. Nodule number: 1 Location: Left superior Size: 1.6 x 0.9 x 1.1 cm. Composition: Solid Echogenicity: Isoechoic Shape: wider than tall. Margins: Smooth Echogenic foci: None Total points: 3 ACR TI-RADS category: TIRADS 3 (mildly suspicious) Nodule number: 2 Location: Right inferior Size: 1.0 x 0.9 x 0.9 cm. Composition: Solid Echogenicity: A Shape: wider than tall. Margins: Smooth Echogenic foci: None Total points: 3 ACR TI-RADS category: TIRADS 3 (mildly suspicious) IMPRESSION: Thyroid gland with a singleTIRADS 3 (mildly suspicious) nodule identified in each thyroid lobe. Per published consensus criteria recommend follow-up thyroid ultrasound in year. ACR TI-RADS definitions and recommendations: TI-RADS 1 (benign): 0 points. FNA not needed. TI-RADS 2 (not suspicious): 2 points. FNA not needed. TI-RADS 3: 3 points. * FNA if 2.5 cm or larger, follow up if 1.5 cm or larger (at 1, 3, and 5 years). TI-RADS 4: 4-6 points. * FNA if 1.5 cm or larger, follow up if 1 cm or larger (at 1, 2, 3, and 5 years). TI-RADS 5: 7 points or more. * FNA if 1 cm or larger, follow up if 0.5 cm or larger (every year for 5 years). Dictated by: Javier Wynn M.D. on 06/15/2024 at 21:03 Approved by: Javier Wynn M.D. on 06/15/2024 at 21:09
== END ==
PROVIDERS: PCP Internal Medicine; Referring Provider Family Medicine; Visit Provider Family Medicine
DX: E04.1 Nontoxic single thyroid nodule (principal); D50.9 Iron deficiency anemia, unspecified
CPT/HCPCS: 76536

== ENCOUNTER → 2024-06-25 09:41 | Outpatient (CLI) | payer MEDICARE, SELFPAY ==
--- NOTE | 2024-06-25 09:43 | DI.NM.S_ITS ---
PROCEDURE: NM UPTAKE AND SCAN RADIOPHARMACEUTICAL: 0.36 mCi I-123 sodium iodide by mouth. INDICATIONS: Thyroid nodule/suppressed TSH w/increased T3/T4 TECHNIQUE: I-123 sodium iodide was administered orally. Anterior neck images were obtained, and iodine uptake by the thyroid gland calculated using [employer] software. COMPARISON: [facility], , THYROID, 06/15/2024, 14:11. FINDINGS: Morphology: The thyroid gland has normal morphology and uniform activity. No 'cold' or 'hot' thyroid nodules are identified. Uptake: 6 hour thyroid uptake is 13.8% ; normal ranges are from 6-18%. 24 hour thyroid uptake is 41.2% ; normal ranges are from 10-30%. IMPRESSION: Elevated 24 hour uptake. Dictated by: Azeb Stark M.D. on 06/26/2024 at 15:37 Approved by: Azeb Stark M.D. on 06/26/2024 at 15:49
== END ==
PROVIDERS: PCP Internal Medicine; Referring Provider Family Medicine; Visit Provider Family Medicine
DX: E04.2 Nontoxic multinodular goiter (principal)
CPT/HCPCS: 78014; A9516

== ENCOUNTER → 2024-08-25 09:02 | Outpatient (CLI) | payer MEDICARE, SELFPAY ==
--- NOTE | 2024-08-25 09:03 | DI.CT.S_ITS ---
PROCEDURE: CT ABDOMEN PELVIS W CON INDICATIONS: WEIGHT LOSS TECHNIQUE: After the administration of intravenous contrast, axial sections acquired from the lung bases to the pubic symphysis. Coronal and sagittal reformats were performed. For radiation dose reduction, the following was used: automated exposure control, adjustment of mA and/or kV according to patient size. COMPARISON: None. FINDINGS: Image quality: Diagnostic. Lower Chest: No significant findings. ABDOMEN: Liver: There are several small low-density hepatic foci too small to characterize. Gallbladder: Negative study of the gallbladder. Biliary ducts: No biliary dilation. Pancreas: No ductal dilation. Spleen: Size is within normal limits. Adrenal Glands: No adrenal nodules. Kidneys and Ureters: There is a solid-appearing mass with enhancing wall measuring 1.86 cm involving the left inferior pole. Follow-up is recommended. There is a benign simple cyst involving the right upper pole. No further workup is indicated. Stomach and Bowel: Normal colonic caliber, without significant wall thickening. There are a few small sigmoid diverticuli without evidence of acute diverticulitis. Peritoneum: No abnormal intraperitoneal fluid. No free air. Ventral Wall: No significant ventral hernia. Abdominal Nodes: No retroperitoneal or mesenteric adenopathy by size criteria. Vessels: Aorta and inferior vena cava are normal in size. PELVIS: Pelvic Organs: Unremarkable. Bladder: No bladder wall thickening, accounting for underdistention. Pelvic Nodes: No enlarged lymph nodes. Miscellaneous: No inguinal hernias are seen. Bones: There is multilevel degenerative changes involving the lumbar spine. There has been a previous posterior fusion at the L4-5 level. IMPRESSION: 1. Solid left inferior pole renal mass. Differential includes neoplastic process. Surgical consultation is recommended. 2. No acute abdominal or pelvic process. Dictated by: Natanael Oviedo M.D. on 08/25/2024 at 11:57 Approved by: Natanael Oviedo M.D. on 08/25/2024 at 12:12
[2024-08-25 09:38] LABS: Estimated Glomerular Filt Rate 57 mL/min (>60)
== END ==
PROVIDERS: Radiology Diagnostic Radiology; PCP Internal Medicine; Referring Provider Internal Medicine; Visit Provider Internal Medicine
DX: N28.1 Cyst of kidney, acquired (principal); N28.89 Other specified disorders of kidney and ureter; D50.9 Iron deficiency anemia, unspecified; R10.12 Left upper quadrant pain
CPT/HCPCS: 36415; 74177; 82565; Q9967

== ENCOUNTER 2024-09-15 13:20 | Observation (INO) | payer MEDICARE, SELFPAY ==
[2024-09-15] VITALS (12 sets, daily range): BP systolic 144–201; BP diastolic 48–107; PULSE 48–60; RESP 12–35; TEMP 36.1–36.6; O2SAT 97–99; BMI 32.8
--- NOTE | 2024-09-15 | DI.CT.S_ITS ---
PROCEDURE: CT HEAD/BRAIN WO CON INDICATIONS: DIZZY TECHNIQUE: Noncontrast 4.5 mm thick angled axial sections acquired from the foramen magnum to the vertex, with coronal and sagittal reformats. For radiation dose reduction, the following was used: automated exposure control, adjustment of mA and/or kV according to patient size. COMPARISON: [facility], MR, MR HEAD/BRAIN WO CON, 06/09/2020, 7:39. [facility], CT, CT ANGIO HEAD AND NECK, 09/15/2024, 14:25. FINDINGS: Image quality: Streak artifact can be seen through the skull base. CSF spaces: Basal cisterns are patent. No extra-axial fluid collections. The ventricles are symmetric in size and shape. Brain: No intracranial bleeds or mass effect. There is cerebral volume loss, with resultant ventricular and sulcal prominence. There are periventricular and deep white matter chronic small vessel ischemic changes. There is intracranial internal carotid artery atherosclerosis. Skull and face: Calvarium and visualized facial bones appear intact, without suspicious lesions. Sinuses: Visualized sinuses and mastoids are clear. IMPRESSION: No imaging explanation is found for this patient's presenting symptoms. To the limits of this noncontrast study, no findings of intracranial masses or mass effect can be seen. Dictated by: Carlito Ellis M.D. on 09/15/2024 at 14:05 Approved by: Carlito Ellis M.D. on 09/15/2024 at 14:06
--- NOTE | 2024-09-15 13:49 | DI.CT.S_ITS ---
PROCEDURE: CT ANGIO HEAD AND NECK INDICATIONS: numbness and tingling rt labial fold and right arm TECHNIQUE: After the administration of intravenous contrast, 1 mm thick sections acquired from the aortic arch through the [place]. 3-dimensional rstches-fmqhwzuam-xmhxfayoas (MIP) and/or volume rendering reformats were acquired of the central intracranial vasculature and neck separately. For radiation dose reduction, the following was used: automated exposure control, adjustment of mA and/or kV according to patient size. COMPARISON: [facility], CT, CT HEAD/BRAIN WO CON, 09/15/2024, 14:25. [facility], MR, MR HEAD/BRAIN WO CON, 06/09/2020, 7:39. FINDINGS: Image quality: Limited by bolus timing, with venous contamination. Cerebral CT Angiogram: Internal carotid arteries: No acute findings. Intracranial ICA are patent with no significant stenosis. No occlusion. No aneurysm. Anterior cerebral arteries: Unremarkable. No significant stenosis. No occlusion. No aneurysm. Middle cerebral arteries: Unremarkable. No significant stenosis. No occlusion. No aneurysm. Posterior cerebral arteries: There is a type origin of the left posterior cerebral artery. The posterior cerebral arteries are otherwise unremarkable. No significant stenosis. No occlusion. No aneurysm. Basilar artery: Unremarkable. No significant stenosis. No occlusion. No aneurysm. Vertebral arteries: Unremarkable as visualized. Dural venous sinuses: Unremarkable given phase of enhancement. Other: Arterial phase appearance of the brain parenchyma is unremarkable. Neck CT Angiogram: Internal carotid arteries: Unremarkable. No significant stenosis. No dissection or occlusion. Common carotid arteries: Unremarkable. No significant stenosis. No dissection or occlusion. External carotid arteries: Unremarkable. No occlusion. Vertebral arteries: Unremarkable. No significant stenosis. No dissection or occlusion. Aortic Arch and Mediastinum: Partially visualized aortic arch unremarkable without evidence of aneurysm. Origins of the great vessels unremarkable. Other: Arterial phase soft tissues of the neck and chest are unremarkable. Moderate cervical spine degenerative change can be seen. IMPRESSION: No imaging explanation is found for this patient's presenting symptoms. No significant intracranial arterial abnormality is seen. No significant abnormality is seen within the arteries of the neck. If there is strong clinical suspicion for an acute stroke, please consider a brain MRI for further evaluation, as it is more sensitive (assuming that there is no contraindication to MRI). Additional findings: Edhzhf-ld-Udxctm developmental anomalies. Moderate cervical spine degenerative change Any quantitative measurements of stenosis were performed using NASCET criteria. Dictated by: Carlito Ellis M.D. on 09/15/2024 at 14:06 Approved by: Carlito Ellis M.D. on 09/15/2024 at 14:08
--- NOTE | 2024-09-15 13:49 | EKG_ITS ---
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
--- NOTE | 2024-09-15 14:15 | ED_ITS ---
HPI - Neuro Symptoms/Deficit General Chief Complaint: Neuro Symptoms/Deficit Stated Complaint: Needs scan for possible Stroke sent from PCP Time Seen by Provider: 09/15/24 14:05 Source: patient Mode of arrival: Ambulatory History of Present Illness HPI Narrative: Patient had sudden onset 9:30 a.m. of right facial right arm/hand tingling without weakness. No slurred speech or facial droop. Symptoms lasted 30 minutes and have resolved. Patient has never had this happen before. Patient has been monitored by primary care with multiple blood pressure medications systolic in the 200s. She used to be in the 160s. She stopped taking her blood pressure at home about 3 months ago so she does not know how long she has had hypertension this high. However she was started on clonidine 0.1 mg twice a day by primary care yesterday. She took 1 pill yesterday/last night and then 1 this morning. She is asymptomatic at this time. No prior history of stroke. On Anticoagulants: No (81mg asa) Related Data Home Medications ?Medication ?Instructions ?Recorded ?Confirmed furosemide 20 mg tablet 20 mg PO DAILY 09/04/2108/30 losartan 100 mg tablet 100 mg PO DAILY 09/04/21 carvedilol 3.125 mg tablet 3.125 mg PO BID 09/15/24 docusate sodium 100 mg capsule 100 mg PO BID 09/15/24 09/15/24 (Colace) ferrous sulfate 325 mg (65 mg 325 mg PO DAILY 09/15/24 09/15/24 iron) tablet (iron) Previous Rx's ?Medication ?Instructions ?Recorded mupirocin 2 % topical ointment 1 applic topical TID #1 5 grams 08/06/24 amlodipine 5 mg tablet 5 mg PO BID 30 days #60 tabs 09/16/24 atorvastatin 40 mg tablet 40 mg PO BEDTIME 30 days #30 tabs 09/16/24 clopidogrel 75 mg tablet 75 mg PO DAILY 21 days #21 t abs 09/16/24 Allergies Allergy/AdvReac Type Severity Reaction Status Date / Time No Known Drug Allergies Allergy Verified 09/15/24 13:43 Review of Systems Review of Systems Narrative: GENERAL: Negative chills, fatigue, malaise, fever, sweats. HEENT: Negative sinus pain, ear pain, sore throat RESPIRATORY: Negative dyspnea, cough CARDIOVASCULAR: Negative chest pain, palpitations GASTROINTESTINAL: Negative vomiting, nausea, abdominal pain : Negative dysuria, frequency, hematuria MUSCULOSKELETAL: Negative muscle or bony pain SKIN: Negative rash, skin lesions NEUROLOGIC: Negative weakness, positive numbness ROS Unobtainable: All systems reviewed & are unremarkable except as noted in HPI and below Hematologic/Lymphatic On Anticoagulants: No (81mg asa) Patient History Social History household members: friend(s) Smoking Status: Never smoker alcohol intake: current Smoking Status: Never smoker alcohol intake frequency: 3 or more drinks per day Alcohol type: wine Exam Narrative Exam Narrative: GENERAL: in no distress, not toxic not dyspneic HEAD: Normocephalic. EYES: Pupils equal round ENT: Mucous membranes moist. NECK: Trachea midline. CARDIOVASCULAR: Regular rate and rhythm RESPIRATORY: Clear to auscultation. Breath sounds equal bilaterally. No wheezes, rales, or rhonchi. GASTROINTESTINAL: Abdomen soft, non-tender EXTREMITIES: No gross deformities. BACK: No flank tenderness. NEURO: AOx4. 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 Fast exam is negative SKIN: Warm and dry PSYCH: Not anxious, is cooperative Initial Vital Signs Initial Vital Signs: Vital Signs Temperature 97.8 F 09/15/24 13:43 Pulse Rate 60 09/15/24 13:43 Respiratory Rate 20 09/15/24 13:43 Blood Pressure 196/84 H 09/15/24 13:43 Pulse Oximetry 99 09/15/24 13:43 Oxygen Delivery Method Room Air 09/15/24 13:43 Scores NIH Stroke Scale Level of Conciousness: Alert, keenly responsive Ask month/age: Answers both questions correctly. Open/close eyes, close hand: Performs both tasks correctly Best gaze horizontal: Normal Visual huang: No visual loss Facial palsy: Normal symetrical movement Left arm drift: No drift for full 10 sec Right arm drift: No drift for full 10 sec Left leg drift: No drift for full 5 sec Right leg drift: No drift for full 5 sec Limb ataxia: Absent Sensory on face/arms/legs: Normal, no sensory loss Best language: No aphasia, normal Dysarthria: Normal Extinction or inattention: No abnormality Total NIH Stroke scale score: 0 Course Orders Ordered: Discontinued Medications Acetaminophen (Acetaminophen 325 Mg Tablet) 650 mg PO Q6H PRN PRN Reason: Fever/Mild Pain (1-3) Amlodipine Besylate (Amlodipine 5 Mg Tablet) 5 mg PO DAILY [facility] Amlodipine Besylate (Amlodipine 5 Mg Tablet) 5 mg PO BID [facility] Last Admin: 09/16/24 11:12 Dose: 5 mg Documented By: Admin: 09/15/24 20:49 Dose: 5 mg Documented By: NASIMA Atorvastatin Calcium (Atorvastatin 20 Mg Tablet) 40 mg PO BEDTIME [facility] Last Admin: 09/15/24 20:49 Dose: 40 mg Documented By: NASIMA Carvedilol (Carvedilol 12.5 Mg Tablet) 12.5 mg PO DAILY [facility] Last Admin: 09/16/24 11:28 Dose: Not Given Documented By: ELIZABETH Carvedilol (Carvedilol 3.125 Mg Tablet) 3.125 mg PO BID [facility] Last Admin: 09/16/24 11:12 Dose: 3.125 mg Documented By: ELIZABETH Clopidogrel Bisulfate (Clopidogrel 75 Mg Tablet) 75 mg PO DAILY [facility] Last Admin: 09/16/24 11:10 Dose: 75 mg Documented By: ELIZABETH Docusate Sodium (Docusate 100 Mg Capsule) 100 mg PO DAILY [facility] Last Admin: 09/16/24 11:25 Dose: 100 mg Documented By: ELIZABETH Furosemide (Furosemide 20 Mg Tablet) 20 mg PO DAILY [facility] Furosemide (Furosemide 20 Mg Tablet) 20 mg PO NOW ONE Stop: 09/16/24 10:53 Last Admin: 09/16/24 11:10 Dose: 20 mg Documented By: ELIZABETH Heparin Sodium (Porcine) (Heparin 5,000 Unit/Ml Vial) 5,000 unit SUBCUT BID [facility] Last Admin: 09/16/24 11:13 Dose: 5,000 unit Documented By: Admin: 09/15/24 20:49 Dose: 5,000 unit Documented By: NASIMA Sodium Chloride (Normal Saline 0.9%) 250 mls @ 1,000 mls/hr IV NOW ONE Stop: 09/15/24 14:28 Last Admin: 09/15/24 20:48 Dose: Not Given Documented By: NASIMA Losartan Potassium (Losartan 50 Mg Tablet) 100 mg PO DAILY [facility] Last Admin: 09/16/24 11:27 Dose: Not Given Documented By: Admin: 09/15/24 22:16 Dose: 100 mg Documented By: NASIMA Losartan Potassium (Losartan 50 Mg Tablet) 100 mg PO BEDTIME [facility] Naloxone HCl (Naloxone 0.4 Mg/Ml Vial) 0.2 mg IV Q2MIN PRN PRN Reason: Opiate Reversal Ondansetron HCl (Ondansetron 4 Mg/2 Ml Inj) 4 mg IV NOW PRN PRN Reason: Nausea And Vomiting Ondansetron HCl (Ondansetron 4 Mg Odt) 4 mg PO NOW PRN PRN Reason: Nausea And Vomiting Pravastatin Sodium (Pravastatin 20 Mg Tablet) 20 mg PO DAILY [facility] Vital Signs Vital signs: Vital Signs - 8 hr 09/15/24 13:43 Temperature 97.8 F Pulse Rate 60 Respiratory Rate 20 Blood Pressure 196/84 H Pulse Oximetry 99 Oxygen Delivery Method Room Air MDM - Neuro Symptoms/Deficit Lab Data 09/15/24 14:10 09/15/24 14:10 Labs: Lab Results 09/15/24 Range/Units 14:10 WBC 5.5 (4.5-11.0) X10^3/uL RBC 4.22 (4.0-5.2) X10^6/uL Hgb 11.7 L (12.0-16.0) g/dL Hct 35.8 L (36-46) % MCV 84.7 (80-100) fL MCH 27.6 (26-34) PG MCHC 32.6 (30-36) % RDW 16.6 H (11.6-14.8) % Plt Count 177 (150-400) X10^3/uL Neut % (Auto) 72.4 (50-75) % Lymph % (Auto) 12.9 L (25-40) % [place] % (Auto) 10.6 (3-14) % Eos % (Auto) 3.3 (2-4) % Baso % (Auto) 0.8 (0-2) % Neut # (Auto) 4000 (0557-7992) /uL Lymph # (Auto) 700 L (2515-6839) /uL [place] # (Auto) 600 (0-900) /uL Eos # (Auto) 200 (0-450) /uL Baso # (Auto) 0 (0-100) /uL PT 10.4 (9.4-12.5) SECONDS INR 0.9 (0.9-1.3) APTT 33 (25.1-36.5) SECONDS Sodium 132 L (137-145) mmol/L Potassium 5.3 H (3.4-5.1) mmol/L Chloride 101 (98-107) mmol/L Carbon Dioxide 22 (22-32) mmol/L BUN 41 H (7-17) mg/dL Creatinine 1.10 H (0.52-1.04) mg/dL Estimated GFR 49 L (>60) mL/min BUN/Creatinine Ratio 37.3 H (6-22) Glucose 91 (70-99) mg/dL Calcium 9.5 (8.4-10.2) mg/dL Total Bilirubin 0.4 (0.2-1.3) mg/dL AST 39 H (14-36) IU/L ALT 23 (<35) IU/L Alkaline Phosphatase 95 (38-126) U/L Total Creatine Kinase 94 (30-135) U/L Troponin I < 0.012 (0.01-0.034) ng/mL Total Protein 7.9 (6.3-8.2) g/dL Albumin 4.6 (3.5-5.0) g/dL Globulin 3.3 (1.7-4.1) g/dL Albumin/Globulin Ratio 1.4 (1.0-2.8) U Opiates 300ng/mL cut Negative (Negative) Ur Oxycodone Screen Negative (Negative) Urine Methadone Screen Negative (Negative) Ur Barbiturates Screen Negative (Negative) U Tricyclic Antidepress Negative (Negative) Ur Phencyclidine Scrn Negative (Negative) Ur Amphetamines Screen Negative (Negative) U Methamphetamines Scrn Negative (Negative) Ur MDMA Scrn (Ecstasy) Negative (Negative) U Benzodiazepines Scrn Negative (Negative) Urine Cocaine Screen Negative (Negative) U Marijuana (THC) Screen Negative (Negative) Urine pH Normal (Normal) Urine Specific [place] Normal (Normal) Ur Creatinine Normal (Normal) Urine Dip Bedside Urine Glucose Negative Bedside Urine Bilirubin - Negative Bedside Urine Ketone - Negative Urine Specific [place] 1.000 Bedside Urine Occult Blood - Negative Bedside Urine pH 7.0 Bedside Urine Protein - Negative Bedside Urine Urobilinogen - Negative Bedside Urine Nitrite - Negative Bedside Urine Leukocytes - Negative Esterase Imaging Data CT scan - head: Radiologist's Impression: No acute finding [address] [address] [address] Scan Report Signed Patient: Lamar Bowser MR#: [id number] : 1935 Acct:[id number] Age/Sex: 89 / F Date of Service: 09/15/24 Loc: ED Accession Number: [id number] Procedure: CT head/brain wo con Ordering Provider: Gurwinder Magdaleno MD PROCEDURE: CT HEAD/BRAIN WO CON INDICATIONS: DIZZY TECHNIQUE: Noncontrast 4.5 mm thick angled axial sections acquired from the foramen magnum to the vertex, with coronal and sagittal reformats. For radiation dose reduction, the following was used: automated exposure control, adjustment of mA and/or kV according to patient size. COMPARISON: [facility], MR, MR HEAD/BRAIN WO CON, 06/09/2020, 7:39. [facility], CT, CT ANGIO HEAD AND NECK, 09/15/2024, 14:25. FINDINGS: Image quality: Streak artifact can be seen through the skull base. CSF spaces: Basal cisterns are patent. No extra-axial fluid collections. The ventricles are symmetric in size and shape. Brain: No intracranial bleeds or mass effect. There is cerebral volume loss, with resultant ventricular and sulcal prominence. There are periventricular and deep white matter chronic small vessel ischemic changes. There is intracranial internal carotid artery atherosclerosis. Skull and face: Calvarium and visualized facial bones appear intact, without suspicious lesions. Sinuses: Visualized sinuses and mastoids are clear. IMPRESSION: No imaging explanation is found for this patient's presenting symptoms. To the limits of this noncontrast study, no findings of intracranial masses or mass effect can be seen. Dictated by: Carlito Ellis M.D. on 09/15/2024 at 14:05 Approved by: Carlito Ellis M.D. on 09/15/2024 at 14:06 CTA - brain/neck: Radiologist's Impression: [address] [address] [address] Scan Report Signed Patient: Lamar Bowser MR#: [id number] : 1935 Acct:[id number] Age/Sex: 89 / F Date of Service: 09/15/24 Loc: ED Accession Number: [id number] Procedure: CT angio head and neck Ordering Provider: Gurwinder Magdaleno MD PROCEDURE: CT ANGIO HEAD AND NECK INDICATIONS: numbness and tingling rt labial fold and right arm TECHNIQUE: After the administration of intravenous contrast, 1 mm thick sections acquired from the aortic arch through the [place]. 3-dimensional yeukfuo-qzyhadykj-kdmbkdgnpr (MIP) and/or volume rendering reformats were acquired of the central intracranial vasculature and neck separately. For radiation dose reduction, the following was used: automated exposure control, adjustment of mA and/or kV according to patient size. COMPARISON: [facility], CT, CT HEAD/BRAIN WO CON, 09/15/2024, 14:25. [facility], MR, MR HEAD/BRAIN WO CON, 06/09/2020, 7:39. FINDINGS: Image quality: Limited by bolus timing, with venous contamination. Cerebral CT Angiogram: Internal carotid arteries: No acute findings. Intracranial ICA are patent with no significant stenosis. No occlusion. No aneurysm. Anterior cerebral arteries: Unremarkable. No significant stenosis. No occlusion. No aneurysm. Middle cerebral arteries: Unremarkable. No significant stenosis. No occlusion. No aneurysm. Posterior cerebral arteries: There is a type origin of the left posterior cerebral artery. The posterior cerebral arteries are otherwise unremarkable. No significant stenosis. No occlusion. No aneurysm. Basilar artery: Unremarkable. No significant stenosis. No occlusion. No aneurysm. Vertebral arteries: Unremarkable as visualized. Dural venous sinuses: Unremarkable given phase of enhancement. Other: Arterial phase appearance of the brain parenchyma is unremarkable. Neck CT Angiogram: Internal carotid arteries: Unremarkable. No significant stenosis. No dissection or occlusion. Common carotid arteries: Unremarkable. No significant stenosis. No dissection or occlusion. External carotid arteries: Unremarkable. No occlusion. Vertebral arteries: Unremarkable. No significant stenosis. No dissection or occlusion. Aortic Arch and Mediastinum: Partially visualized aortic arch unremarkable without evidence of aneurysm. Origins of the great vessels unremarkable. Other: Arterial phase soft tissues of the neck and chest are unremarkable. Moderate cervical spine degenerative change can be seen. IMPRESSION: No imaging explanation is found for this patient's presenting symptoms. No significant intracranial arterial abnormality is seen. No significant abnormality is seen within the arteries of the neck. If there is strong clinical suspicion for an acute stroke, please consider a brain MRI for further evaluation, as it is more sensitive (assuming that there is no contraindication to MRI). 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 Dictated by: Carlito Ellis M.D. on 09/15/2024 at 14:06 Approved by: Carlito Ellis M.D. on 09/15/2024 at 14:08 [facility] Narrative Medical decision making narrative: Patient had sudden onset 9:30 a.m. of right facial right arm/hand tingling without weakness. No slurred speech or facial droop. Symptoms lasted 30 minutes and have resolved. Patient has never had this happen before. Patient has been monitored by primary care with multiple blood pressure medications systolic in the 200s. She used to be in the 160s. She stopped taking her blood pressure at home about 3 months ago so she does not know how long she has had hypertension this high. However she was started on clonidine 0.1 mg twice a day by primary care yesterday. She took 1 pill yesterday/last night and then 1 this morning. She is asymptomatic at this time. No prior history of stroke. After history and exam, CT head CT angiogram head and neck EKG CBC CMP troponin [facility] Medical records reviewed: No recent visit for this complaint Differential considered: Includes but not limited to TIA stroke hypertensive urgency/emergency Lab Test results independently reviewed as above. Pertinent findings: WBC 5.5 hemoglobin sodium 132 3 BUN 41 troponin less than 0.012 Independently reviewed EKG sinus bradycardia rate 54 Imaging studies independently reviewed: CT head CT angiogram head and neck no acute finding Consultations: 3:46 p.m.. Spoke with hospitalist dr santana, will admit patient Re-evaluations: 3:50 p.m. updated patient results. She agrees for admission. Will need stroke workup including not limited to MRI and echocardiogram Discussion: Appropriate for admission. Hyperkalemia noted in IV fluids given to reduce potassium levels. Patient agrees for admission hospitalist or balance or workup for TIA/stroke. No neurology consult indicated at this time. Symptoms have resolved. Diagnosis: TIA Stroke Core Measures Exclusion Criteria TPA in CVA: Symptom Onset >3 or 4.5 Hours Discharge Plan Departure Patient Disposition: Admitted as Observation Clinical Impression: Transient cerebral ischemia Qualifiers: Transient cerebral ischemia type: unspecified Qualified Code(s): G45.9 - Transient cerebral ischemic attack, unspecified Admit Date/Time: 09/15/24 15:46 Admit Provider: José Miguel Santana
[2024-09-15 14:23] LABS: Add Manual Diff / Slide Review NO; Basophils Absolute Auto 0 /uL (0-100); Basophils Percent Auto 0.8 % (0-2); Eosinophils Absolute Auto 200 /uL (0-450); Eosinophils Percent Auto 3.3 % (2-4); Hematocrit 35.8 % (36-46); Hemoglobin 11.7 g/dL (12.0-16.0); Lymphocytes Absolute Auto 700 /uL (1100-4500); Lymphocytes Percent Auto 12.9 % (25-40); Mean Corpuscular HGB Conc 32.6 % (30-36); Mean Corpuscular Hemoglobin 27.6 PG (26-34); Mean Corpuscular Volume 84.7 fL (80-100); Monocytes Absolute Auto 600 /uL (0-900); Monocytes Percent Auto 10.6 % (3-14); Neutrophils Absolute Auto 4000 /uL (1500-7000); Neutrophils Percent Auto 72.4 % (50-75); Platelet Count 177 X10^3/uL (150-400); Red Blood Cell Count 4.22 X10^6/uL (4.0-5.2); Red Cell Distribution Width 16.6 % (11.6-14.8); White Blood Cell Count 5.5 X10^3/uL (4.5-11.0)
--- NOTE | 2024-09-15 14:23 | PC.NURSE ---
PT A/O X4. Denies pain. Has some tingling to right hand.
[2024-09-15 14:39] LABS: INR 0.9 (0.9-1.3); Prothrombin Time 10.4 SECONDS (9.4-12.5)
[2024-09-15 14:41] LABS: PTT Partial Thromboplastin Tim 33 SECONDS (25.1-36.5)
[2024-09-15 14:42] LABS: UR Morphine/Opiate cutoff 300 Negative (Negative); Ur Creatinine Normal (Normal); Ur Specific Gravity Normal (Normal); Urine Amphetamines Negative (Negative); Urine Barbiturates Negative (Negative); Urine Benzodiazepines Negative (Negative); Urine Cocaine Negative (Negative); Urine MDMA Negative (Negative); Urine Methadone Negative (Negative); Urine Methamphetamines Negative (Negative); Urine Oxycodone Negative (Negative); Urine Phencyclidine Negative (Negative); Urine Tetrahydrocannabinol Negative (Negative); Urine Tricyclic Antidepressant Negative (Negative); Urine pH Normal (Normal)
[2024-09-15 14:46] LABS: Alanine Aminotransferase 23 IU/L (<35); Albumin 4.6 g/dL (3.5-5.0); Albumin Globulin Ratio 1.4 (1.0-2.8); Alkaline Phosphatase 95 U/L (38-126); Aspartate Aminotransferase 39 IU/L (14-36); BUN Creatinine Ratio 37.3 (6-22); Bilirubin Total 0.4 mg/dL (0.2-1.3); Blood Urea Nitrogen 41 mg/dL (7-17); Calcium 9.5 mg/dL (8.4-10.2); Carbon Dioxide 22 mmol/L (22-32); Chloride 101 mmol/L (98-107); Creatine Kinase 94 U/L (30-135); Estimated Glomerular Filt Rate 49 mL/min (>60); Globulin 3.3 g/dL (1.7-4.1); Glucose 91 mg/dL (70-99); HEMOLYSIS < 15 (0-50); Potassium 5.3 mmol/L (3.4-5.1); Sodium 132 mmol/L (137-145); Total Protein 7.9 g/dL (6.3-8.2)
[2024-09-15 14:58] LABS: Troponin I < 0.012 ng/mL (0.01-0.034)
--- NOTE | 2024-09-15 15:48 | P.HP_ITS ---
History of Present Illness History of Present Illness Date Patient Seen: 09/15/24 Chief complaint: Needs scan for possible Stroke sent from PCP Narrative: Chief complaint: Stroke-like symptoms right facial hand and arm tingling History of present illness: 09/15: Patient had sudden onset 9:30 a.m. of right facial right arm/hand tingling without weakness. No slurred speech or facial droop. Symptoms lasted 30 minutes and have resolved. Patient has never had this happen before. Patient has been monitored by primary care with multiple blood pressure medications systolic in the 200s. She used to be in the 160s. She stopped taking her blood pressure at home about 3 months ago so she does not know how long she has had hypertension this high. However she was started on clonidine 0.1 mg twice a day by primary care yesterday. She took 1 pill yesterday/last night and then 1 this morning. She is asymptomatic at this time. No prior history of stroke. On Anticoagulants: No (81mg asa) Past medical history, surgical history, social history, family history see bottom of the note: Review of systems: No weight loss or weight gain fatigue fever or chills No headache diplopia or blurred vision No difficulty swallowing No chest pain palpitations wheezing shortness for breath No nausea vomiting diarrhea constipation abdominal pain No urinary symptom Physical exam: Pleasant elderly female alert cogent no acute distress HEENT unremarkable Neck no carotid bruits no JVD Heart rate and rhythm regular with premature beats and pauses Lungs clear from apices to bases Abdomen nondistended nontender bowel sounds present Extremities no cyanosis clubbing edema Neurologic exam: Alert and oriented x4 Cranial nerves intact 5/5 strength all extremities Light touch sensation intact all extremities and dermatome Normal [id number] Normal gait Objective laboratory and imaging data please see bottom of the note: Assessment and plan: Suspected TIA stroke-like symptoms new setting of having her antihypertensive adjusted we will begin dual antiplatelet therapy Plavix added to her aspirin * Dual antiplatelet therapy high-dose statin * Monitor blood pressure consider adding amlodipine in the a.m. tomorrow permissive Hypertension for today * Echocardiogram and MRI tomorrow * Neuro check per protocol DVT prophylaxis: * Subcutaneous heparin Code status: * [facility] Social History Smoking Status: Never smoker Meds Home Medications and Allergies Home Medications ?Medication ?Instructions ?Recorded ?Confirmed ?Type amlodipine 5 mg tablet 5 mg PO DAILY 09/04/2108/06 History carvedilol 12.5 mg tablet 12.5 mg PO DAILY 09/04/21 History carvedilol 6.25 mg tablet 6.25 mg PO DAILY 09/04/21 History furosemide 20 mg tablet 20 mg PO DAILY 09/04/2111/23 History furosemide 40 mg tablet 40 mg PO DAILY 09/04/2111/23 History losartan 100 mg tablet 100 mg PO DAILY 09/04/2111/23 History pravastatin 20 mg tablet 20 mg PO DAILY 09/04/2111/23 History mupirocin 2 % topical ointment 1 applic topical TID #1 5 grams 08/06/24 08/06/24 Rx Allergies Allergy/AdvReac Type Severity Reaction Status Date / Time No Known Drug Allergies Allergy Verified 09/15/24 13:43 Exam Vital Signs (past 8 hours): - 09/15/24 13:43 Temperature 97.8 F Pulse Rate 60 Respiratory Rate 20 Blood Pressure 196/84 H Pulse Oximetry 99 Oxygen Delivery Method Room Air Oxygen Delivery Method Room Air Objective Labs 09/15/24 14:10 09/15/24 14:10 Labs: Laboratory Results - last 24 hr 09/15/24 14:10 WBC 5.5 RBC 4.22 Hgb 11.7 L Hct 35.8 L MCV 84.7 MCH 27.6 MCHC 32.6 RDW 16.6 H Plt Count 177 Neut % (Auto) 72.4 Lymph % (Auto) 12.9 L [place] % (Auto) 10.6 Eos % (Auto) 3.3 Baso % (Auto) 0.8 Neut # (Auto) 4000 Lymph # (Auto) 700 L [place] # (Auto) 600 Eos # (Auto) 200 Baso # (Auto) 0 PT 10.4 INR 0.9 APTT 33 Sodium 132 L Potassium 5.3 H Chloride 101 Carbon Dioxide 22 BUN 41 H Creatinine 1.10 H Estimated GFR 49 L BUN/Creatinine Ratio 37.3 H Glucose 91 Calcium 9.5 Total Bilirubin 0.4 AST 39 H ALT 23 Alkaline Phosphatase 95 Total Creatine Kinase 94 Troponin I < 0.012 Total Protein 7.9 Albumin 4.6 Globulin 3.3 Albumin/Globulin Ratio 1.4 U Opiates 300ng/mL cut Negative Ur Oxycodone Screen Negative Urine Methadone Screen Negative Ur Barbiturates Screen Negative U Tricyclic Antidepress Negative Ur Phencyclidine Scrn Negative Ur Amphetamines Screen Negative U Methamphetamines Scrn Negative Ur MDMA Scrn (Ecstasy) Negative U Benzodiazepines Scrn Negative Urine Cocaine Screen Negative U Marijuana (THC) Screen Negative Urine pH Normal Urine Specific [place] Normal Ur Creatinine Normal Assessment & Plan Time-Based Coding :: 55 minutes spent with patient and on the chart (including review of chart, obtaining history, exam, reviewing outside data, placing orders, documenting exam and treatment plan, and counseling patient). Quality MIPS - Admit I confirm the patient?s Advance Care Plan is present, Code status is documented, Surrogate decision maker is in patient?s record [If Yes, STOP here]: Yes MIPS - Meds 'Current medications' to include all prescriptions, [id number] products, herbals, cannabis/cannabidiol products, and vitamin/mineral/dietary (nutritional) supplements. I have utilized all available resources to obtain, update, or review the patient?s current medications. [If Yes, STOP here]: Yes
[2024-09-15] MEDS: HEPARIN 5,000 UNIT/ML VIAL 5000 UNIT SUBCUT (20:49)
[2024-09-15] MEDS: ATORVASTATIN 20 MG TABLET 40 MG PO (20:49)
[2024-09-15] MEDS: AMLODIPINE 5 MG TABLET PO (20:49)
[2024-09-15] MEDS: LOSARTAN 50 MG TABLET 100 MG PO (22:16)
[2024-09-16] VITALS: BP 130/52; PULSE 52; RESP 16; TEMP 36.1; O2SAT 98
[2024-09-16 06:00] VITALS: BP 161/54; PULSE 51; RESP 14; TEMP 36.1; O2SAT 99
[2024-09-16 07:00] VITALS: BP 163/49; PULSE 59; RESP 17; TEMP 36.6; O2SAT 100
--- NOTE | 2024-09-16 07:00 | DI.ECHO.S_ITS ---
[facility] : : [address] : : [place] : : [address] : : Phone: [phone] Echocardiogram Report + + :Name: KERVIN JOHNSON Study Date: 09/16/2024 Height: 63 in : :[facility] ReadingLocation: Weight: 185 lb : : Gender: Female BSA: 1.9 m2 : :: 1935 Age: 89 yrs BP: 191/66 mmHg: :Reason For Study: CVA : :Ordering Physician: SUNITA : :ARABELLA Performed By: Queenie Lawson : :Referring: ARABELLA DORSEY : + + Interpretation Summary 1. The left ventricular contractility is normal. Estimated ejection fraction greater than 55% with no segmental wall motion abnormalities. No LVH. Grade 1 diastolic dysfunction. 2. The right ventricle contractility is normal. 3. Mild left atrial enlargement. All other cardiac chambers are of normal size. 4. Trace to mild mitral regurgitation. 5. Trace to mild tricuspid regurgitation with estimated pulmonary systolic artery pressures of 35 mmHg. 6. No intracardiac shunts noted on agitated saline contrast study. 7. No obvious intracardiac masses nor thrombi. 8. No hemodynamically significant pericardial effusion. 9. Low right-sided filling pressures. Conclusion: Normal biventricular systolic function with no intracardiac shunts nor significant valvular abnormalities. When compared with previous echocardiogram, there appears to be a decrease in the tricuspid regurgitation. Procedure: A two-dimensional transthoracic echocardiogram with color flow and Doppler was performed. The study quality was technically adequate. Comparison is made with the echocardiogram of 12-18-21. The heart rate ranged between 46-48 bpm during the study. Left Ventricle: The left ventricle is normal in size and wall thickness. The ejection fraction is estimated to be 55-60%. Right Ventricle: The right ventricle grossly appears normal in size with probable normal systolic function. Atria: The left atrium is mildly dilated. Right atrial size is normal. Injection of contrast documented no interatrial shunt. Bubble study was captured on image frame(s) # 103. Mitral Valve: The mitral valve leaflets appear borderline thickened, but open well. There is mild mitral regurgitation. Aortic Valve: The aortic valve is trileaflet. The aortic valve opens well. There is trace aortic regurgitation. Tricuspid Valve: The tricuspid valve leaflets are thin and pliable. There is mild tricuspid regurgitation. The right ventricular systolic pressure is estimated to be at least 35 mmHg based on an estimated right atrial pressure of 3 mm Hg. Pulmonic Valve: The pulmonic valve is not well seen, but is grossly normal. There is no pulmonic valvular regurgitation. Great Vessels: The aortic root is normal size. The ascending aorta is normal in size. The aortic arch is normal in size. The IVC is of normal diameter and collapses greater than 50% with a sniff. This suggests a low right atrial pressure of 3 mm Hg. Pericardium/ Pleura There is no pericardial effusion. There is no pleural effusion. MMode/2D Measurements & Calculations LVIDd: 5.7 cm LVOT diam: 2.0 cm LVIDs: 3.1 cm Ao root diam: 3.1 cm FS: 45.9 % asc Aorta Diam: 3.2 cm EPSS: 0.86 cm Ao Arch Diam (Prox Trans): 2.2 cm IVSd: 0.75 cm LVPWd: 0.81 cm LV barroso. diameter/BSA (cm/m^2): 3.0 LV sys. diameter/BSA (cm/m^2): 1.6 LA A2 area: 24.8 cm2 RA long axis: 5.8 cm LA A4 area: 22.3 cm2 RA area: 17.6 cm2 LA length (vol): 5.3 cm RA vol: 45.1 ml LA vol: 88.3 ml RA : 24.1 ml/m2 LA vol index: 47.2 ml/m2 IVC diam: 1.8 cm RVD1 (basal): 2.8 cm TAPSE: 2.5 cm Doppler Measurements & Calculations Ao V2 max: 140.0 cm/sec LVOT Max Simone: 77.4 cm/sec Ao V2 mean: 103.9 cm/sec LV V1 max P.4 mmHg Ao max P.8 mmHg LV V1 VTI: 21.4 cm Ao mean P.8 mmHg VADIM(I,D): 1.8 cm2 Ao V2 VTI: 40.0 cm VADIM(V,D): 1.8 cm2 sev ratio: 0.54 VADIM indexed to BSA (cm^2/m^2): 0.94 MV E max simone: 76.5 cm/sec TR max simone: 281.2 cm/sec MV A max simone: 76.9 cm/sec TR max P.6 mmHg MV E/A: 1.00 PA V2 max: 93.4 cm/sec Med Peak E' Simone: 5.0 cm/sec PA V2 mean: 75.3 cm/sec E/E' med: 15.2 PA mean P.4 mmHg Lat Peak E' Simone: 5.8 cm/sec PA pr(Accel): 20.8 mmHg E/E' lat: 13.2 E/e' average: 14.2 MV dec time: 0.20 sec Pulm A Revs Simone: 22.9 cm/sec SV(LVOT): 70.0 ml Reading Physician:CK
--- NOTE | 2024-09-16 09:00 | DI.MRI.S_ITS ---
PROCEDURE: MR HEAD/BRAIN WO CON INDICATIONS: Stroke-like symptoms TECHNIQUE: Non-contrast axial T1 spin echo, axial T2 fast spin echo, sagittal and axial FLAIR, coronal T2 fast spin echo, axial gradient echo, axial diffusion and ADC through the brain. COMPARISON: [facility], CT, CT ANGIO HEAD AND NECK, 09/15/2024, 14:25. [facility], CT, CT HEAD/BRAIN WO CON, 09/15/2024, 14:25. [facility], MR, MR HEAD/BRAIN WO CON, 06/09/2020, 7:39. FINDINGS: Image quality: Excellent. CSF spaces: Ventricles appear symmetric in size and shape. Basal cisterns are patent. No extra-axial fluid collections. Brain: No intracranial bleeds or mass effects. There is cerebral volume loss for age. There are periventricular and deep white matter chronic small vessel ischemic changes. Brainstem appears normal. Diffusion-weighted images show no acute infarct. No chronic ischemic insults. Normal intravascular flow voids are present. Skull and face: Calvarial bone marrow is normal in signal. Orbits are normal. Sinuses: Sinuses and mastoids are clear. IMPRESSION: 1. No acute intracranial process. 2. Mild to moderate atrophy and chronic microvascular ischemic changes. Dictated by: Azeb Stark M.D. on 09/16/2024 at 13:04 Approved by: Azeb Stark M.D. on 09/16/2024 at 13:05
[2024-09-16] MEDS: CLOPIDOGREL 75 MG TABLET PO (11:10)
[2024-09-16] MEDS: FUROSEMIDE 20 MG TABLET PO (11:10)
[2024-09-16] MEDS: AMLODIPINE 5 MG TABLET PO (11:12)
[2024-09-16] MEDS: carvediloL 3.125 MG TABLET PO (11:12)
[2024-09-16] MEDS: HEPARIN 5,000 UNIT/ML VIAL 5000 UNIT SUBCUT (11:13)
[2024-09-16] MEDS: DOCUSATE 100 MG CAPSULE PO (11:25)
--- NOTE | 2024-09-16 13:30 | P.DS_ITS ---
History of Present Illness History of Present Illness Date Patient Seen: 09/16/24 Chief complaint: Needs scan for possible Stroke sent from PCP Narrative: Per admitting provider Chief complaint: Stroke-like symptoms right facial hand and arm tingling History of present illness: 09/15: Patient had sudden onset 9:30 a.m. of right facial right arm/hand tingling without weakness. No slurred speech or facial droop. Symptoms lasted 30 minutes and have resolved. Patient has never had this happen before. Patient has been monitored by primary care with multiple blood pressure medications systolic in the 200s. She used to be in the 160s. She stopped taking her blood pressure at home about 3 months ago so she does not know how long she has had hypertension this high. However she was started on clonidine 0.1 mg twice a day by primary care yesterday. She took 1 pill yesterday/last night and then 1 this morning. She is asymptomatic at this time. No prior history of stroke. On Anticoagulants: No (81mg asa) Past medical history, surgical history, social history, family history see bottom of the note: Discharge Providers Provider Date of admission: 09/15/24 15:46 Discharge Date: 09/16/24 Primary care physician: Merari Marks MD Discharge provider: Jacobo Rainey DO Summary Hospital Course Discharge Diagnosis: 1. TIA, improved, present on amission 2. HTN, acute on chronic 3. HLD, chronic Hospital Course: This is a 89-year-old female with a past medical history of hypertension, hyperlipidemia who was admitted for further evaluation of a probable TIA after presenting with approximately 30 minutes of right-sided facial numbness and hand tingling. She had no recurrence of symptoms after admission. She was started on dual antiplatelet therapy with aspirin and clopidogrel for recommended 21 days given TIA. Her home statin was switched to high-intensity atorvastatin at 40 mg nightly. MRI was performed and was negative for an acute infarction. Echocardiogram was performed and showed no PFO and an unremarkable ejection fraction. Telemetry showed no evidence for atrial fibrillation. The patient was fairly hypertensive on presentation, and she had recently started clonidine. This was stopped in favor of transition to amlodipine 5 mg twice daily, with continuation of her home carvedilol, furosemide, and losartan. Medication reconciliation performed on admission also showed that the patient was on hydrochlorothiazide, but given low sodium and mildly elevated potassium at 5.3 the furosemide was continued in favor of HCTZ. At the time of discharge, her blood pressures were still slightly hypertensive but improved. She was on a regimen of amlodipine 5 mg b.i.d., carvedilol 3.125 mg b.i.d., furosemide 20 mg daily, and losartan 100 mg daily. Recommend continued follow-up with primary care for ongoing management of her hypertension and consideration for Holter monitor as an outpatient. Time Spent with Patient Time spent: Greater than 30 minutes Exam Vital Signs (past 8 hours): - 09/16/24 06:00 09/16/24 07:00 Temperature 97 F L 97.8 F Pulse Rate 51 L 59 L Respiratory Rate 14 17 Blood Pressure 161/54 H 163/49 H Pulse Oximetry 99 100 Oxygen Flow Rate 0 0 Oxygen Delivery Method Room Air Oxygen Flow Rate 0 Narrative Exam Narrative: Pleasant elderly female alert cogent no acute distress HEENT unremarkable Neck no carotid bruits no JVD Heart rate and rhythm regular with premature beats and pauses Lungs clear from apices to bases Abdomen nondistended nontender bowel sounds present Extremities no cyanosis clubbing edema Objective Labs 09/15/24 14:10 09/15/24 14:10 Labs: Laboratory Results - last 24 hr 09/15/24 14:10 WBC 5.5 RBC 4.22 Hgb 11.7 L Hct 35.8 L MCV 84.7 MCH 27.6 MCHC 32.6 RDW 16.6 H Plt Count 177 Neut % (Auto) 72.4 Lymph % (Auto) 12.9 L Meagher % (Auto) 10.6 Eos % (Auto) 3.3 Baso % (Auto) 0.8 Neut # (Auto) 4000 Lymph # (Auto) 700 L Meagher # (Auto) 600 Eos # (Auto) 200 Baso # (Auto) 0 PT 10.4 INR 0.9 APTT 33 Sodium 132 L Potassium 5.3 H Chloride 101 Carbon Dioxide 22 BUN 41 H Creatinine 1.10 H Estimated GFR 49 L BUN/Creatinine Ratio 37.3 H Glucose 91 Calcium 9.5 Total Bilirubin 0.4 AST 39 H ALT 23 Alkaline Phosphatase 95 Total Creatine Kinase 94 Troponin I < 0.012 Total Protein 7.9 Albumin 4.6 Globulin 3.3 Albumin/Globulin Ratio 1.4 U Opiates 300ng/mL cut Negative Ur Oxycodone Screen Negative Urine Methadone Screen Negative Ur Barbiturates Screen Negative U Tricyclic Antidepress Negative Ur Phencyclidine Scrn Negative Ur Amphetamines Screen Negative U Methamphetamines Scrn Negative Ur MDMA Scrn (Ecstasy) Negative U Benzodiazepines Scrn Negative Urine Cocaine Screen Negative U Marijuana (THC) Screen Negative Urine pH Normal Urine Specific Economy Normal Ur Creatinine Normal PFSH Social History household members: friend(s) Smoking Status: Never smoker alcohol intake: current Discharge Plan Discharge Plan Patient Disposition: Home Provider Discharge Comment: You were admitted to the hospital for further evaluation of a possible TIA. MRI was negative for stroke, please follow up with primary care for continued BP management, a few of your regular medications have been changed. Discharge orders & Medications Prescriptions: New amlodipine 5 mg Tablet 5 mg PO BID 30 Days Qty: 60 0RF atorvastatin 40 mg tablet 40 mg PO BEDTIME 30 Days Qty: 30 0RF clopidogrel 75 mg Tablet 75 mg PO DAILY 21 Days Qty: 21 0RF Continued mupirocin 2 % ointment 1 applic topical TID Qty: 15 0RF furosemide 20 mg tablet 20 mg PO DAILY losartan 100 mg tablet 100 mg PO DAILY carvedilol 3.125 mg tablet 3.125 mg PO BID docusate sodium [Colace] 100 mg capsule 100 mg PO BID ferrous sulfate [iron] 325 mg (65 mg iron) tablet 325 mg PO DAILY Discontinued amlodipine 5 mg tablet 5 mg PO DAILY pravastatin 20 mg tablet 20 mg PO DAILY clonidine HCl 0.1 mg tablet 0.1 mg PO BID hydralazine 25 mg tablet 25 mg PO BID hydrochlorothiazide 25 mg tablet 25 mg PO DAILY Follow up/Referrals: Merari Marks MD [Primary Care Provider, Internal Medicine] Diet/Activity/Treatments Diet: Diet as Tolerated and Regular Activity: As tolerated, no restrictions Visit Report/Discharge Packet Stand Alone Forms: Patient Portal/API, Stroke Signs & Symptoms Discharge Data Primary Care Provider: Merari Marks Attending Provider: José Miguel Ayala Admit Date/Time: 09/15/24 15:46 Quality VTE Deep Vein Thrombosis/Pulmonary Embolism Present on Admission: No
--- NOTE | 2024-09-16 14:07 | CM.DANOTE ---
Initial DCP Assessment Visit Note Reviewed EMR and team rounds for pt's status updates. Met with pt at bedside to introduce self and role, pt was found to be alert/oriented, resting quietly in bed, requesting wanting to d/c back home. Pt lives alone independently in her own home here in [place]. She has friends who can transport her home once she's medically cleared for d/c, likely this afternoon. Payor: [facility] PCP: Dr. Merari Marks Pt is a 89 year-old F who presented to the ED with c/o stroke-like symptoms. She had sudden onset R-facial, arm, and hand tingling, however no slurred speech or facial droop. CT imaging was negative for abnormalities or cause of her symptoms, TIA was suspected. Plan was made to admit to [facility] for further monitoring, brain MR, and ECHO. She was also started on IV fluids for slight hyperkalemia, which has since resolved. She denies any CM d/c assistance or resource needs at this time. Discharge Planning/Care Management CM Discharge Assessment Start: 09/15/24 16:51 Freq: Status: Active Protocol: Document 09/16/24 14:05 DPL (Rec: 09/16/24 14:07 DPL [id number]) Discharge Planning Assessment Assigned Discharge JOHNNA Mcneal Sheather Advance Directives? Yes Advance Directives No on File History Provided By Patient,Medical Record Has Patient been No admitted in last 30 days? Prior Living House Arrangements Comment lives part of the year in [place] and part of the year in [place] . Household Members friend(s) Type of Relies on Others transporation used prior to admit Independent with ADL Yes 's Is patient alert and Yes oriented? Comment N/A Caregiver for No Another Comment No anticipated d/c needs at this time. Barriers to No Discharge Discharge Plan Home Referrals Initiated None needed Whiteboard Updated Yes in Patient Room with name and ext. # of Coil Former Review Status In Process Please Provide Date 09/16/24 Initial DC Assessment Was Performed
--- NOTE | 2024-09-16 14:17 | PC.NURSE ---
Day shift: Discharge instructions gone over with patient. Patient stated understanding, all questions answered. PIV + tele removed. All belongings with patient. PCT Molina escorted patient to exit via wheelchair where her friend plans to pick her up and drive her home.
== END 2024-09-16 14:19 | disposition home or self-care (01) ==
LOC: ED 15:37 → AC 15:47
PROVIDERS: Admitting Provider Internal Medicine; Emergency Provider Emergency Medicine; PCP Internal Medicine; Referring Provider Emergency Medicine; Visit Provider Internal Medicine
DX: G45.9 Transient cerebral ischemic attack, unspecified (principal); R29.700 NIHSS score 0; I10 Essential (primary) hypertension; E78.5 Hyperlipidemia, unspecified; Z79.82 Long term (current) use of aspirin
CPT/HCPCS: 70450; 70496; 70498; 70551; 80053; 80305; 81003; 82550; 84484; 85025; 85610; 85730; 93005; 93010; 93306; 96372; 99284; G0378; J1644; Q9967

== ENCOUNTER → 2024-10-14 14:24 | Outpatient (CLI) | payer MEDICARE, SELFPAY ==
[2024-09-15 16:51] VITALS: BMI 32.8
--- NOTE | 2024-10-14 14:33 | DI.MG.S_ITS ---
Patient Name: KERVIN JOHNSON date: 1935 Sex: F Attending Physician: Kendrick Indications: Date: 10/14/2024 22:59 At the request of: BUSHRA DINH Procedure: MM screening mammo BI MM screening mammo BI: 10/14/2024. BI-RADS: 0 CLINICAL: 89-year old female for bilateral screening mammogram. No Tyrer-Cuzick risk score calculation due to the patient's personal history of breast cancer. Patient reports a history of left breast carcinoma diagnosed at age 74. Status-post left lumpectomy with radiation therapy. PRIOR EXAMS 10/11/2023, 07/19/2021, 06/13/2020. MAMMOGRAPHY TECHNIQUE: 2D and 3D (tomosynthesis) digital mammographic views obtained, with additional images as needed for full coverage. Current study was also evaluated with a Computer Aided Detection (CAD) system. DENSITY B. There are scattered areas of fibroglandular density. MAMMOGRAPHY FINDINGS Right: MLO only, Upper, Anterior depth: Asymmetry needing additional imaging evaluation. Left: Benign-appearing post-surgical changes noted on the left. There are no suspicious masses, calcifications, or other findings in the breast. IMPRESSION: Right (Asymmetry): MLO only, Upper, Anterior depth * Incomplete - asymmetry needing additional imaging evaluation. Left * No evidence of malignancy with benign findings. Continued Report - Page 2 of 2 Patient Name: KERVIN JOHNSON date: 1935 Sex: F Attending Physician: Kendrick Indications: Date: 10/14/2024 22:59 At the request of: BUSHRA DINH Procedure: MM screening mammo BI RECOMMENDATIONS Right: MLO only, Upper, Anterior depth * Further evaluation with diagnostic mammography and diagnostic ultrasound. Ultrasound to be performed only if needed. OVERALL ASSESSMENT CATEGORY BI-RADS-0: Incomplete - Need Additional Imaging Evaluation. ELECTRONICALLY SIGNED: Mary Urias M.D. on 10/14/2024 at 10:59:27 PM PT Interpreting Station ID: [id number]
== END ==
PROVIDERS: PCP Internal Medicine; Referring Provider Internal Medicine; Visit Provider Internal Medicine
DX: Z12.31 Encounter for screening mammogram for malignant neoplasm of breast (principal); Z85.3 Personal history of malignant neoplasm of breast
CPT/HCPCS: 77063; 77067